=== PATIENT | male | born 1935 | race Caucasian/White ===

== ENCOUNTER 2017-03-02 16:31 | Observation (INO) ==
[2017-03-02 17:20] LABS: Basophils % 0.4 %; Eosinophils # 0.1 K/mcL (0.0-0.6); Eosinophils % 1.3 %; Hematocrit 42.1 % (37.5-50.1); Hemoglobin 13.9 g/dL (12.9-16.9); Immature Granulocytes % 0.3 % (0-4); Lymphocytes # 1.3 K/mcL (0.6-4.6); Lymphocytes % 11.6 %; Mean Corpuscular Hemoglobin 28.7 pg (28.0-33.3); Mean Corpuscular Volume 86.8 fL (83.0-100.0); Mean Platelet Volume 9.6 fL (9.4-12.4); Monocytes # 0.9 K/mcL (0.0-1.3); Monocytes % 8.1 %; Neutrophils # 8.6 K/mcL (1.6-8.9); Platelet Count 214 K/mcL (140-400); Red Blood Count 4.85 M/mcL (4.19-5.50); Red Cell Distribution Width 13.3 % (11.5-14.5); Segmented Neutrophils % 78.3 %
[2017-03-02 17:33] LABS: BUN/Creatinine Ratio 17 (6-26); Blood Urea Nitrogen 16 mg/dL (8-26); Calcium 9.8 mg/dL (8.6-10.8); Carbon Dioxide 28 mEq/L (19-29); Chloride 103 mEq/L (98-109); Glucose 108 mg/dL (70-99); Osmolality,Calculated 288 (280-300); Potassium 4.6 mEq/L (3.5-4.5); Sodium 138 mEq/L (136-145); eGFR For African Americans > 60 (> 60); eGFR For Non-African Americans > 60 (> 60)
--- NOTE | 2017-03-02 18:19 | Emergency Department Note ---
Disposition Clinical Impression: Chest pain Qualifiers: Chest pain type: unspecified Qualified Code(s): R07.9 - Chest pain, unspecified Abdominal pain Qualifiers: Abdominal location: unspecified location Qualified Code(s): R10.9 - Unspecified abdominal pain Disposition: Admitted As Inpatient Condition: Good Time of Disposition: 19:21 Abdominal Pain HPI - General Chief Complaint: ED Abdominal Pain Stated Complaint: CP/ABD Pain, Time Seen by Provider: 03/02/17 18:18 Source: patient Mode of arrival: ambulatory Limitations: no limitations Nursing Notes Reviewed: Yes Vital Signs Reviewed: Yes - History of Present Illness HPI Narrative: 81-year-old male who comes in states about 1:00 last night he woke up with epigastric pain and chest discomfort. Patient states he's had picked otitis in the past doesn't know if this is related to his also had some chest pain overnight. As postcholecystectomy does not drink alcohol. Pt Subjective Complaint: abdominal pain Onset (ago): hour(s) Consistency: constant Location: epigastric Pain Severity: moderate Quality: aching Radiation: chest Migration to: no migration Improves with: nothing Worsens with: nothing Associated symptoms: Reports: denies other symptoms - Related Data Home Medications Medication Instructions Recorded Confirmed Aspirin 81 mg PO DAILY 05/29/16 03/02/17 Finasteride [Proscar] 5 mg PO DAILY 05/29/16 03/02/17 Garlic 1,000 mg PO DAILY 05/29/16 03/02/17 Multivitamin [Multi-Day Vitamins] 1 each PO DAILY 05/29/16 03/02/17 [place]-3/Dha/Epa/Fish Oil [Fish Oil 2 each PO DAILY 05/29/16 03/02/17 1,000 mg Softgel] Polyethylene Glycol 3350 [MiraLAX] 17 gm PO DAILY 03/02/17 03/02/17 Previous Rx's Medication Instructions Recorded Omeprazole [PriLOSEC] 40 mg PO DAILY #30 cap 03/04/17 Sucralfate [Carafate] 1 gm PO QIDAC #120 tablet 03/04/17 Allergies Allergy/AdvReac Type Severity Reaction Status Date / Time azithromycin Allergy Swelling Verified 05/29/16 10:49 [From Zithromax Z-Prince] of the Eye All systems ED: reviewed and negative except as stated. Constitutional: Denies: fever, chills, weakness, weight change Eyes: Denies: eye pain, eye discharge, vision change ENT ED: Denies: ear pain, throat pain, dental pain, hearing loss, epistaxis, congestion, dysphagia Cardiovascular: Reports: chest pain. Denies: palpitations, dyspnea on exertion , edema, syncope Respiratory: Denies: cough, dyspnea, wheezes, hemoptysis, stridor Gastrointestinal: Reports: abdominal pain. Denies: nausea, vomiting, diarrhea, constipation, hematemesis, melena, hematochezia Genitourinary: Denies: urgency, dysuria, frequency, hematuria Musculoskeletal: Denies: back pain, neck pain, arthralgia, myalgia Integumentary: Denies: rash, abrasion, lesions Neurological: Denies: headache, weakness, numbness, paresthesias, confusion, abnormal gait, vertigo Psychiatric: Denies: anxiety, depression, suicidal thoughts, homicidal thoughts , auditory hallucinations, visual hallucinations Endocrine: Denies: fatigue Hematological/Lymphatic: Denies: easy bleeding, easy bruising Allergic/Immunologic: Denies: facial swelling, urticaria Abdominal Pain PMH - Past Medical History Medical history: Reports: GERD, RA, other Psychiatric history: Reports: no psych history - Social History Smoking status: Never smoker Alcohol use: Reports: none Drug use: Reports: none Physical Exam - General Limitations: no limitations - Head Head exam: atraumatic, normocephalic, normal inspection - Eye Eye exam: Present: normal appearance - ENT ENT exam: normal exam, normal oropharynx, mucous membranes moist - Neck Neck exam: Present: normal inspection, full ROM, trachea midline - Chest Chest inspection: Present: normal inspection, symmetric chest wall rise - Respiratory Respiratory exam: Present: normal lung sounds bilaterally - Cardiovascular Cardiovascular exam: Present: regular rate, normal rhythm, normal heart sounds - Abdominal Exam Abdominal exam: Present: soft, tenderness. Absent: guarding, rebound Abdominal tenderness: Present: epigastrium - Expanded Lower Extremity Exam Neurovascular/Tendon exam: Absent: motor deficit, sensory deficit, tendon deficit Gait: observed and normal - Back Exam Back exam: Present: normal inspection, full ROM. Absent: tenderness - Neurological Exam Neurological exam: Present: alert, oriented X3 - Psychiatric Psychiatric exam: Present: normal affect, normal mood - Skin Skin exam: Present: warm, dry, intact, normal color Course - Reevaluation(s) Reevaluation #1: 81-year-old gentleman comes in complaining of abdominal pain chest pain. Says the pain across his chest. Workup in the emergency department shows negative troponin. His amylase and lipase were normal. She will be admitted to evaluate the chest pain further. Time: 19:20 - Consultations Consultation #1: Discussed with Baltazar Stewart, admit Time: 19:20 Vital Signs Temperature 99.9 F H 03/02/17 16:53 Pulse Rate 83 03/02/17 16:53 Respiratory Rate 18 03/02/17 16:53 Blood Pressure 153/73 03/02/17 16:53 O2 Sat by Pulse Oximetry 97 03/02/17 16:53 Temperature 97.8 F 03/04/17 11:01 Pulse Rate 80 03/04/17 11:01 Respiratory Rate 16 03/04/17 11:01 Blood Pressure 172/65 03/04/17 11:01 O2 Sat by Pulse Oximetry 97 03/04/17 11:01 Oxygen Delivery Oxygen Delivery Room Air Abdominal Pain - Lab Data Result diagrams: 03/04/17 05:33 03/04/17 05:33 Lab Results 03/02/17 03/02/17 03/02/17 Range/Units 17:11 17:11 17:11 WBC 11.0 (4.3-11.1) K/mcL RBC 4.85 (4.19-5.50) M/mcL Hgb 13.9 (12.9-16.9) g/dL Hct 42.1 (37.5-50.1) % MCV 86.8 (83.0-100.0) fL MCH 28.7 (28.0-33.3) pg MCHC 33.0 (31.6-35.5) g/dL RDW 13.3 (11.5-14.5) % Plt Count 214 (140-400) K/mcL MPV 9.6 (9.4-12.4) fL Immature Gran % 0.3 (0-4) % Seg Neutrophils % 78.3 % Lymphocytes % 11.6 % Monocytes % 8.1 % Eosinophils % 1.3 % Basophils % 0.4 % Neutrophils # 8.6 (1.6-8.9) K/mcL Lymphocytes # 1.3 (0.6-4.6) K/mcL Monocytes # 0.9 (0.0-1.3) K/mcL Eosinophils # 0.1 (0.0-0.6) K/mcL Basophils # 0.0 (0.0-0.2) K/mcL Sodium 138 (136-145) mEq/L Potassium 4.6 H (3.5-4.5) mEq/L Chloride 103 (98-109) mEq/L Carbon Dioxide 28 (19-29) mEq/L BUN 16 (8-26) mg/dL Creatinine 0.93 (0.72-1.25) mg/dL Est GFR ( Amer) > 60 (> 60) Est GFR (Non-Af Amer) > 60 (> 60) BUN/Creatinine Ratio 17 (6-26) Glucose 108 H (70-99) mg/dL Calculated Osmolality 288 (280-300) Calcium 9.8 (8.6-10.8) mg/dL Total Bilirubin 0.9 (0.2-1.2) mg/dL Direct Bilirubin 0.4 (0.0-0.5) mg/dL Indirect Bilirubin 0.5 (0.0-1.2) mg/dL AST 202 H (5-34) Units/L ALT 223 H (0-55) Units/L Alkaline Phosphatase 121 (38-126) Units/L Troponin I 0.01 (0-0.03) ng/mL Serum Total Protein 7.5 (6.0-8.3) g/dL Albumin 3.7 (3.5-5.0) g/dL Globulin 3.8 H (2.4-3.5) g/dL Albumin/Globulin Ratio 1.0 L (1.1-2.2) Amylase 43 (25-125) Units/L Lipase 30 (8-78) Units/L Urine Color (Yellow) Urine Clarity (Clear) Urine pH (5.0-8.0) pH Units Ur Specific [place] (1.010-1.025) Urine Protein (Neg-Trace) mg/dL Urine Glucose (UA) (Normal) mg/dL Urine Ketones (Negative) mg/dL Urine Blood (Negative) Urine Nitrite (Negative) Urine Bilirubin (Negative) Urine Urobilinogen (Normal) mg/dL Ur Leukocyte Esterase (Negative) Urine Microscopic RBC (0-3) per hpf Urine Microscopic WBC (0-3) per hpf Ur Squamous Epith Cells (None-Few) per lpf Amorphous Sediment (Few) Urine Bacteria (None-Few) per hpf Hyaline Casts (None-Few) per lpf Urine Mucus (Few) Ur Culture Indicated? (NO) 03/02/17 Range/Units 18:30 WBC (4.3-11.1) K/mcL RBC (4.19-5.50) M/mcL Hgb (12.9-16.9) g/dL Hct (37.5-50.1) % MCV (83.0-100.0) fL MCH (28.0-33.3) pg MCHC (31.6-35.5) g/dL RDW (11.5-14.5) % Plt Count (140-400) K/mcL MPV (9.4-12.4) fL Immature Gran % (0-4) % Seg Neutrophils % % Lymphocytes % % Monocytes % % Eosinophils % % Basophils % % Neutrophils # (1.6-8.9) K/mcL Lymphocytes # (0.6-4.6) K/mcL Monocytes # (0.0-1.3) K/mcL Eosinophils # (0.0-0.6) K/mcL Basophils # (0.0-0.2) K/mcL Sodium (136-145) mEq/L Potassium (3.5-4.5) mEq/L Chloride (98-109) mEq/L Carbon Dioxide (19-29) mEq/L BUN (8-26) mg/dL Creatinine (0.72-1.25) mg/dL Est GFR ( Amer) (> 60) Est GFR (Non-Af Amer) (> 60) BUN/Creatinine Ratio (6-26) Glucose (70-99) mg/dL Calculated Osmolality (280-300) Calcium (8.6-10.8) mg/dL Total Bilirubin (0.2-1.2) mg/dL Direct Bilirubin (0.0-0.5) mg/dL Indirect Bilirubin (0.0-1.2) mg/dL AST (5-34) Units/L ALT (0-55) Units/L Alkaline Phosphatase (38-126) Units/L Troponin I (0-0.03) ng/mL Serum Total Protein (6.0-8.3) g/dL Albumin (3.5-5.0) g/dL Globulin (2.4-3.5) g/dL Albumin/Globulin Ratio (1.1-2.2) Amylase (25-125) Units/L Lipase (8-78) Units/L Urine Color Yellow (Yellow) Urine Clarity Cloudy A (Clear) Urine pH 8.0 (5.0-8.0) pH Units Ur Specific [place] 1.023 (1.010-1.025) Urine Protein 30 H (Neg-Trace) mg/dL Urine Glucose (UA) Normal (Normal) mg/dL Urine Ketones Negative (Negative) mg/dL Urine Blood Small H (Negative) Urine Nitrite Negative (Negative) Urine Bilirubin Negative (Negative) Urine Urobilinogen Normal (Normal) mg/dL Ur Leukocyte Esterase Small H (Negative) Urine Microscopic RBC 3-5 H (0-3) per hpf Urine Microscopic WBC 30-50 H (0-3) per hpf Ur Squamous Epith Cells Many H (None-Few) per lpf Amorphous Sediment Few (Few) Urine Bacteria None Seen (None-Few) per hpf Hyaline Casts None Seen (None-Few) per lpf Urine Mucus Moderate H (Few) Ur Culture Indicated? YES A (NO) - EKG Data EKG attestation: Yes I reviewed and interpreted this EKG. EKG shows normal: sinus rhythm Rate: normal Rhythm: NSR Interpretation: no acute changes
[2017-03-02 18:40] LABS: Alanine Aminotransferase 223 Units/L (0-55); Alkaline Phosphatase 121 Units/L (38-126); Amylase 43 Units/L (25-125); Aspartate Amino Transferase 202 Units/L (5-34); Bilirubin,Direct 0.4 mg/dL (0.0-0.5); Bilirubin,Indirect 0.5 mg/dL (0.0-1.2); Bilirubin,Total 0.9 mg/dL (0.2-1.2); Lipase 30 Units/L (8-78); Total Protein 7.5 g/dL (6.0-8.3)
[2017-03-02 18:48] LABS: Albumin 3.7 g/dL (3.5-5.0); Globulin 3.8 g/dL (2.4-3.5)
[2017-03-02 19:04] LABS: Bilirubin,Urine Negative (Negative); Blood,Urine Small (Negative); Clarity,Urine Cloudy (Clear); Color,Urine Yellow (Yellow); Glucose,Urine (UA) Normal (Normal); Ketones,Urine Negative (Negative); Leukocyte Esterase,Urine Small (Negative); Nitrite,Urine Negative (Negative); Protein,Urine 30 mg/dL (Neg-Trace); Specific Gravity,Urine 1.023 (1.010-1.025); Urobilinogen,Urine Normal (Normal)
[2017-03-02 19:06] LABS: Bacteria,Urine None Seen per hpf (None-Few); Squamous Epithelial Cell,Urine Many per lpf (None-Few); WBC,Urine 30-50 per hpf (0-3)
[2017-03-02 19:37] LABS: Amorphous Sediment,Urine Few (Few); Hyaline Casts,Urine None Seen per lpf (None-Few)
[2017-03-02 19:38] LABS: Mucus,Urine Moderate (Few)
[2017-03-02] MEDS ORDERED: Pantoprazole 40 MG VIAL IVP ONE (19:44)
--- NOTE | 2017-03-02 20:01 | Internal Med History&Physical ---
<oMe Trevizo - Last Filed: 03/02/17 21:30> Date of Encounter: 03/02/17 Time of Encounter: 19:59 Assessment and Plan (1) Chest pain Current visit: Yes Status: Acute Chest pain, r/o ACS ANNETTE score 3: Age 81, Patient takes Aspirin daily, and chest pain > 2 episodes in 24hrs He reports his mother from an [place] at age 66 Last stress test and EGD were normal 5 years ago. Initial troponin negative, monitor serial troponins. EKG negative. CT abd/plv shows no pericardial effusion is seen. Continue ASA daily, NTG prn, and Zofran prn. Clear liquid diet Will order Echo if no relief in chest pain with GI Cocktail and make NPO after MN for stress test Qualifiers: Chest pain type: unspecified Qualified Code(s): R07.9 - Chest pain, unspecified (2) UTI (urinary tract infection) Current visit: Yes Status: Acute Patient febrile 99.9 F UA shows cloudy appearance, small leukocyte estrase, WBC 30-50, and moderate mucous. Urine culture pending Continue Rocephin 1g daily Qualifiers: Urinary tract infection type: acute cystitis Qualified Code(s): N30.00 - Acute cystitis without hematuria (3) GERD (gastroesophageal reflux disease) Current visit: Yes Status: Acute GI cocktail ordered Continue Protonix BID Last EGD 5 years ago. Qualifiers: Esophagitis presence: esophagitis presence not specified Qualified Code(s) : K21.9 - Gastro-esophageal reflux disease without esophagitis (4) Transaminitis Current visit: Yes Status: Acute Elevated AST/ALT, Hepatic panel pending CT abd/plv reveals no acute intra-abdominal or pelvic process is seen, no ileus or obstruction, prior cholecystectomy. Continue to monitor (5) Arthritis Current visit: Yes Status: Acute Continue to monitor (6) BPH (benign prostatic hyperplasia) Current visit: Yes Status: Acute Continue home med: Proscar Qualifiers: Lower urinary tract symptom presence: symptoms present Qualified Code(s): N40.1 - Benign prostatic hyperplasia with lower urinary tract symptoms; R35.0 - Frequency of micturition (7) DVT prophylaxis Current visit: Yes Status: Acute Heparin SubQ TID Internal Medicine - H&P: HPI Chief complaint: Abd pain Admitted From: Home Plans for Post Hospital Care: Home History of present illness: Mr. Henry is a 81 year old male with a PMH of GERD, RA, BPH, and recent UTI that presented to the ED c/o constant lower chest/ epigastric pain that woke him up out of sleep at 1pm last night and has wax and waned in severity. Pain severity was 8/10 at its worst, radiates to his bilateral shoulder blades, and is described as a tightness. Patient reports eating makes epigastric pain worse and sitting up/ leading forward makes the pain better. Associated symptoms include fever, anorexia, nausea, and back pain. Patient reports he is very active and his last stress test and EGD were normal 5 years ago. Patient takes Aspirin daily and denies tobacco use. He reports his mother from an [place] at age 66 and his father had colon cancer. In the ED, EKG was unremarkable, initial troponin level was negative, CXR negative, and CT abd/plv negative. Temperature was 99.9 F and patient had positive UTI. Family is at bedside. Past Med Surg Social Fam HX - Past Medical History Medical history: GERD, RA, other Psychiatric history: no psych history - Past Surgical History Surgical History: cholecystectomy, herniorrhaphy (inguinal x3), other (back) - Social History Smoking Status: Never smoker Smokeless Tobacco Status: No Alcohol use: none Drug use: none Occupational status: retired Current living situation: Home, With Family Activity Level: Independent ambulation - Family History Mother Hx Family Cardiac Disorders: Yes (AK) Hx Family Endocrine Disorder: Yes (DM) Father Hx Family Cancer: Yes (Colon) Brother Hx Family Cancer: Yes (Colon) Internal Medicine - H&P: Meds Aspirin 81 mg PO DAILY 05/29/16 [History] Finasteride [Proscar] 5 mg PO DAILY 05/29/16 [History] Garlic 1,000 mg PO DAILY 05/29/16 [History] Multivitamin [Multi-Day Vitamins] 1 each PO DAILY 05/29/16 [History] [place]-3/Dha/Epa/Fish Oil [Fish Oil 1,000 mg Softgel] 2 each PO DAILY 05/29/16 [ History] Polyethylene Glycol 3350 [MiraLAX] 17 gm PO DAILY 03/02/17 [History] 3 Allergy/AdvReac Type Severity Reaction Status Date / Time azithromycin Allergy Swelling Verified 05/29/16 10:49 [From Zithromax Z-Prince] of the Eye All Systems PM: A 10-system review of systems was performed and is negative for pertinent findings except as documented above in the HPI. - Constitutional Constitutional: anorexia, fever(s), no chills, no weight gain, no weight loss - EENT Eyes: no change in vision Nose, mouth and throat: no nasal congestion, no sinus pressure - Cardiovascular Cardiovascular ROS IM: chest pain, no palpitations - Respiratory Respiratory: no cough, no dyspnea, no chest congestion, no excessive phlegm production, no change in phlegm color - Gastrointestinal Gastrointestinal: abdominal pain, heartburn, nausea, no bloating, no change in stool character, no constipation, no cramping, no diarrhea, no vomiting - Genitourinary Genitourinary ROS male: urinary frequency, urinary urgency, no difficulty urinating, no dysuria - Musculoskeletal Musculoskeletal ROS IM: arthralgias, back pain, no muscle weakness, no numbness , no tingling - Integumentary Integumentary IM: no erythema, no new lesions, no rash - Neurological Neurological ROS: no confusion, no numbness, no tingling, no weakness - Psychiatric Psychiatric: no anxiety, no depression - Endocrine Endocrine IM: no polydipsia, no polyphagia, no polyuria - Constitutional Vitals: Temp Pulse Resp BP Pulse Ox 99.9 F H 83 18 153/73 97 03/02/17 16:53 03/02/17 16:53 03/02/17 16:53 03/02/17 16:53 03/02/17 16:53 General appearance: Present: cooperative, A&O X 3, pleasant, no acute distress, answers questions appropriately. Absent: obese - Head Head exam: Present: atraumatic, normal inspection, normocephalic - Eye Eye exam: Present: EOMI, PERRL - ENT ENT exam: Present: mucous membranes moist, normal oropharynx - Neck Neck exam general surgery: Present: full ROM, normal inspection, supple - Respiratory Respiratory exam: Present: CTAB. Absent: rhonchi, wheezes - Cardiovascular Cardiovascular exam: Present: RRR, +S1, +S2 - GI/Abdominal GI/Abdominal exam: Present: soft, tenderness (epigastric). Absent: distended, guarding, rebound - Extremities Exam Extremities exam: Present: full ROM, normal capillary refill, warm, radial pulses palpable and symmetrical. Absent: pedal edema, tenderness - Back Exam Back exam: Present: normal inspection, paraspinal tenderness (T-spine). Absent : tenderness, vertebral tenderness - Neurological Exam Neurological exam: Present: alert, oriented X3, strengths equal and symetr throughout. Absent: altered, speech deficit - Psychiatric Psychiatric exam: Present: normal affect, normal mood - Skin Skin exam: Present: dry, normal color, warm Internal Med - H&P Results - Labs CBC & Chem 7: 03/02/17 17:11 03/02/17 17:11 Labs: Short CBC 03/02/17 Range/Units 17:11 WBC 11.0 (4.3-11.1) K/mcL Hgb 13.9 (12.9-16.9) g/dL Hct 42.1 (37.5-50.1) % Plt Count 214 (140-400) K/mcL Neutrophils # 8.6 (1.6-8.9) K/mcL BMP 03/02/17 17:11 Sodium 138 Potassium 4.6 H Chloride 103 Carbon Dioxide 28 BUN 16 Creatinine 0.93 Glucose 108 H Calcium 9.8 Cardiac Enzymes 03/02/17 Range/Units 17:11 Troponin I 0.01 (0-0.03) ng/mL Liver Function 03/02/17 Range/Units 17:11 Total Bilirubin 0.9 (0.2-1.2) mg/dL Direct Bilirubin 0.4 (0.0-0.5) mg/dL AST 202 H (5-34) Units/L ALT 223 H (0-55) Units/L Alkaline Phosphatase 121 (38-126) Units/L Albumin 3.7 (3.5-5.0) g/dL Urine 03/02/17 Range/Units 18:30 Urine Color Yellow (Yellow) Urine Clarity Cloudy A (Clear) Urine pH 8.0 (5.0-8.0) pH Units Ur Specific [place] 1.023 (1.010-1.025) Urine Protein 30 H (Neg-Trace) mg/dL Urine Glucose (UA) Normal (Normal) mg/dL - EKG Data -: EKG Interpreted by Myself EKG shows normal: sinus rhythm, axis, intervals, QRS complexes Rate: normal - Impressions ITS Impressions Chest X-Ray 03/02/17 16:56 IMPRESSION: No acute process. D/ / Olaf Be MD / Olaf Be MD Interpreting Provider: Olaf Be MD Abdomen/Pelvis CT 03/02/17 18:54 IMPRESSION: No acute intra-abdominal or pelvic process is seen. No ileus or obstruction. Cholecystectomy. D/ / Moe Lauren MD / Moe Lauren MD Interpreting Provider: Moe Lauren MD <Serina Ospina - Last Filed: 03/03/17 00:13> Date of Encounter: 03/03/17 Time of Encounter: 00:04 Internal Medicine - H&P: HPI History of present illness: Mr. Henry is a 81 year old male All Systems PM: A 10-system review of systems was performed and is negative for pertinent findings except as documented above in the HPI. - Constitutional Vitals: Temp Pulse Resp BP Pulse Ox 99.2 F 85 16 144/73 94 03/02/17 22:53 03/02/17 22:53 03/02/17 22:53 03/02/17 22:53 03/02/17 22:53 Internal Med - H&P Results - Labs CBC & Chem 7: 03/02/17 17:11 03/02/17 17:11 Labs: Cardiac Enzymes 03/02/17 Range/Units 21:01 Troponin I 0.02 (0-0.03) ng/mL - Attending Attestation Patient is an 81y/o male with PMH of GERD, RA, BPH who presented to the ER for worsening epigastric pain since yesterday. Patient describes the pain as burning /sharp in nature radiating to b/l rib cage, denies any associated symptoms. No alleviated and exacerbating factors reported. Patient received one dose of the GI cocktail after being on the unit, he states that resolved his pain but the pain reoccurred a couple of hours later. Patient denies any chest discomfort, no pressure like pain, or history of prior AK, no SOB. I independently examined the patient and during my evaluation, he denied any pain. He states he received the GI cocktail which resolved his pain and when the pain reoccured, he received one dose of morphine which resolved the pain. At this time, he denies any pain. He is resting comfortably in bed. Pt reports of an EGD a few years ago which was negative. CT abd/pelvis noted. Given currently clinical presentation, patient's pain is unlikely secondary to ACS. Will monitor serial TNI and obtain 2D echo. No EKG changes noted. No pericardial effusion reported on imaging. Pt currently pain free. If above tests are positive for any acute abnormality, consider cardiology evaluation. Will start Protonix IV BID, Carafate QID, consider GI evaluation in am. Pt also noted to have UTI. Will continue IV abx and f/u urine cultures. Noted to have elevated transaminases, will obtain viral hepatitis panel. Case was discussed with the resident physician Dr. Moe Trevzio. I agree with his documented findings, assessment, and plan except as listed above
[2017-03-02] MEDS ORDERED: Ondansetron 4 MG/2 ML VIAL IVP PRN (20:41)
[2017-03-02] MEDS ORDERED: Nitroglycerin 0.4 MG TAB.SUBL SL PRN (20:41)
[2017-03-02] MEDS ORDERED: Aspirin 325 MG TABLET PO ONE (20:41)
[2017-03-02] MEDS ORDERED: GI Cocktail 40 ML EACH PO ONE (20:45)
[2017-03-02] MEDS: Acetaminophen 325 MG TABLET PO PRN (22:11)
[2017-03-02] MEDS: *HR* Heparin 5,000 UNIT/ML VIAL SQ SCH (22:11)
[2017-03-02] MEDS: *HR* Morphine 2 MG/ML SYRINGE IVP PRN (23:33)
[2017-03-03] MEDS: Acetaminophen 325 MG TABLET PO PRN (03:10)
[2017-03-03] MEDS: *HR* Morphine 2 MG/ML SYRINGE IVP PRN (03:39)
[2017-03-03 05:34] LABS: INR 1.2; Prothrombin Time 12.9 Seconds (9.4-12.1)
[2017-03-03 06:07] LABS: Basophils % 0.3 %; Eosinophils # 0.1 K/mcL (0.0-0.6); Eosinophils % 1.3 %; Hematocrit 37.8 % (37.5-50.1); Hemoglobin 12.4 g/dL (12.9-16.9); Immature Granulocytes % 0.6 % (0-4); Immature Platelets 3.2 % (1.1-6.1); Lymphocytes # 0.7 K/mcL (0.6-4.6); Lymphocytes % 10.4 %; Mean Corpuscular HGB Conc 32.8 g/dL (31.6-35.5); Mean Corpuscular Hemoglobin 28.3 pg (28.0-33.3); Mean Corpuscular Volume 86.3 fL (83.0-100.0); Mean Platelet Volume 10.1 fL (9.4-12.4); Monocytes # 0.7 K/mcL (0.0-1.3); Monocytes % 10.4 %; Neutrophils # 5.2 K/mcL (1.6-8.9); Platelet Count 181 K/mcL (140-400); Red Blood Count 4.38 M/mcL (4.19-5.50); Red Cell Distribution Width 13.2 % (11.5-14.5)
[2017-03-03] MEDS: *HR* Heparin 5,000 UNIT/ML VIAL SQ SCH ×3 (06:13→20:50)
[2017-03-03 06:58] LABS: Alanine Aminotransferase 809 Units/L (0-55); Albumin/Globulin Ratio 0.9 (1.1-2.2); Alkaline Phosphatase 175 Units/L (38-126); Aspartate Amino Transferase 1112 Units/L (5-34); BUN/Creatinine Ratio 17 (6-26); Blood Urea Nitrogen 14 mg/dL (8-26); Calcium 8.6 mg/dL (8.6-10.8); Carbon Dioxide 23 mEq/L (19-29); Chloride 103 mEq/L (98-109); Globulin 3.4 g/dL (2.4-3.5); Glucose 117 mg/dL (70-99); Magnesium 1.8 mg/dL (1.6-2.6); Osmolality,Calculated 282 (280-300); Potassium 3.7 mEq/L (3.5-4.5); Total Protein 6.4 g/dL (6.0-8.3); eGFR For African Americans > 60 (> 60); eGFR For Non-African Americans > 60 (> 60)
[2017-03-03 06:59] LABS: Bilirubin,Total 3.3 mg/dL (0.2-1.2); Sodium 135 mEq/L (136-145)
[2017-03-03 07:16] LABS: Chol/HDL Ratio 2.8 (0-4.9)
[2017-03-03] MEDS ORDERED: Pantoprazole 40 MG VIAL IVP SCH (09:00)
[2017-03-03] MEDS: Pantoprazole 40 MG VIAL IVP SCH ×2 (10:27→20:49)
[2017-03-03] MEDS: Finasteride 5 MG TABLET PO SCH (10:27)
[2017-03-03] MEDS: Aspirin 81 MG TAB.CHEW PO SCH (10:27)
[2017-03-03] MEDS: Sucralfate 1 GM TABLET PO SCH ×4 (10:29→20:50)
[2017-03-03 14:44] LABS: Hepatitis B Core IgM Nonreactive (Nonreactive); Hepatitis C Virus Antibody Nonreactive (Nonreactive)
[2017-03-03 15:56] LABS: Albumin 3.2 g/dL (3.5-5.0); Albumin/Globulin Ratio 0.9 (1.1-2.2); Bilirubin,Direct 1.5 mg/dL (0.0-0.5); Bilirubin,Indirect 0.9 mg/dL (0.0-1.2); Bilirubin,Total 2.4 mg/dL (0.2-1.2); Globulin 3.7 g/dL (2.4-3.5); Total Protein 6.9 g/dL (6.0-8.3)
[2017-03-03 16:22] LABS: Hepatitis A Antibody IgM Nonreactive (Nonreactive); Hepatitis B Surface Antigen Nonreactive (Nonreactive)
--- NOTE | 2017-03-03 17:03 | Internal Med Progress Note ---
Date of Encounter: 03/03/17 Time of Encounter: 17:07 - Assessment and plan (1) Chest pain Current Visit: Yes Status: Acute Assessment and plan: Chest pain, r/o ACS ANNETTE score 3: Age 81, Patient takes Aspirin daily, and chest pain > 2 episodes in 24hr. Serial troponins, EKG without acute ST changes. 03/03/2017 TTE with EF 60%. CT abd/plv shows no pericardial effusion is seen. Continue ASA daily, NTG prn, and Zofran prn. Stress test in a.m., consult cardiology if needed. Qualifiers: Chest pain type: unspecified Qualified Code(s): R07.9 - Chest pain, unspecified (2) Transaminitis Current Visit: Yes Status: Acute Assessment and plan: AST/ALT mildly elevated on arrival. Repeat LFTs on 920 was significant elevation, also with elevation in bilirubin. Acute hepatitis panel negative CT abd/plv reveals no acute intra-abdominal or pelvic process is seen, no ileus or obstruction. Hx prior cholecystectomy. RUQ US concerning for CBD dilation. Discussed case with GI and concerned for choledocholithiasis. MRCP pending. (3) UTI (urinary tract infection) Current Visit: Yes Status: Acute Assessment and plan: UA concerning for UTI with cloudy appearance, small leukocyte estrase, WBC 30-50 , and moderate mucous. Continue Rocephin. Urine culture pending, narrow ATB according to culture. Qualifiers: Urinary tract infection type: acute cystitis Qualified Code(s): N30.00 - Acute cystitis without hematuria (4) DVT prophylaxis Current Visit: Yes Status: Acute - Subjective Interval history: Seen and examined at bedside, patient is new to me. Information obtained from chart review and patient report. Patient reports long-standing ABG pain for years. No known liver disease. Had gallbladder removed years ago. No loose stool, complains of constipation. No further chest pain since his mentation. Denies shortness of breath. Has some intermittent nausea, no vomiting. - Constitutional Vitals: Temp Pulse Resp BP Pulse Ox 97.9 F 74 16 151/65 96 03/03/17 15:26 03/03/17 15:26 03/03/17 15:26 03/03/17 15:26 03/03/17 15:26 General appearance: Present: cooperative, A&O X 3, pleasant, no acute distress, answers questions appropriately. Absent: obese - Head Head exam: Present: atraumatic, normocephalic - Eye Eye exam: Present: PERRL, conjuntiva pink, sclera anicteric Pupils: Present: PERRL - Neck Neck exam general surgery: Present: supple, trachea midline. Absent: lymphadenopathy - Respiratory Respiratory exam: Present: CTAB. Absent: accessory muscle use, rales, rhonchi, wheezes - Cardiovascular Cardiovascular exam: Present: RRR, +S1, +S2. Absent: diastolic murmur, gallop, rubs, systolic murmur - GI/Abdominal GI/Abdominal exam: Present: normal bowel sounds, soft, tenderness, no peritoneal signs. Absent: distended - Extremities Exam Extremities exam: Present: warm, radial pulses palpable and symmetrical. Absent : calf tenderness, cyanotic, pedal edema - Neurological Exam Neurological exam: Present: CN II-XII intact, oriented X3, no focal deficits. Absent: pronater drift, facial droop, speech deficit - Skin Skin exam: Present: dry, intact Internal Medicine: Result - Labs CBC & Chem 7: 03/03/17 04:48 03/03/17 04:48 Labs: Short CBC 03/03/17 Range/Units 04:48 WBC 6.7 (4.3-11.1) K/mcL Hgb 12.4 L D (12.9-16.9) g/dL Hct 37.8 (37.5-50.1) % Plt Count 181 (140-400) K/mcL Neutrophils # 5.2 (1.6-8.9) K/mcL BMP 03/03/17 04:48 Sodium 135 L Potassium 3.7 Chloride 103 Carbon Dioxide 23 BUN 14 Creatinine 0.81 Glucose 117 H Calcium 8.6 Cardiac Enzymes 03/02/17 03/03/17 03/03/17 Range/Units 21:01 04:48 10:41 Troponin I 0.02 0.01 0.00 (0-0.03) ng/mL Liver Function 03/03/17 03/03/17 Range/Units 04:48 15:01 Total Bilirubin 3.3 H D 2.4 H (0.2-1.2) mg/dL Direct Bilirubin 1.5 H D (0.0-0.5) mg/dL AST 1112 H 635 H (5-34) Units/L ALT 809 H 801 H (0-55) Units/L Alkaline Phosphatase 175 H 207 H (38-126) Units/L Albumin 3.0 L 3.2 L (3.5-5.0) g/dL - ABG Interpretation ABG results: PT/INR, D-dimer PT 12.9 Seconds (9.4-12.1) H 03/03/17 04:48 - Impressions Impressions Abdomen Ultrasound 03/03/17 11:00 IMPRESSION: Mild intrahepatic biliary dilatation. Common bile duct is prominence. Findings may be related to previous cholecystectomy. Findings are unchanged since the CT 04/15/2015 D/ / Chanel Hagen MD / Chanel Hagen MD Interpreting Provider: Chanel Hagen MD Consult Discharge Plan - Plan Referrals: Stephany Prince, EAR PULL MACHINE OPERATOR [Primary Care Provider] -
[2017-03-03] MEDS ORDERED: 0.9 % Sodium Chloride 1,000 ML IVC SCH (17:15)
[2017-03-04] MEDS: *HR* Heparin 5,000 UNIT/ML VIAL SQ SCH ×2 (05:51→14:58)
[2017-03-04 06:01] LABS: Hemoglobin 12.6 g/dL (12.9-16.9); Mean Corpuscular HGB Conc 33.2 g/dL (31.6-35.5); Mean Corpuscular Hemoglobin 28.6 pg (28.0-33.3); Mean Corpuscular Volume 86.2 fL (83.0-100.0); Mean Platelet Volume 10.3 fL (9.4-12.4); Platelet Count 183 K/mcL (140-400); Red Blood Count 4.41 M/mcL (4.19-5.50); Red Cell Distribution Width 13.2 % (11.5-14.5)
[2017-03-04 06:13] LABS: Alanine Aminotransferase 518 Units/L (0-55); Albumin 2.8 g/dL (3.5-5.0); Albumin/Globulin Ratio 0.8 (1.1-2.2); Alkaline Phosphatase 168 Units/L (38-126); Aspartate Amino Transferase 286 Units/L (5-34); BUN/Creatinine Ratio 14 (6-26); Bilirubin,Indirect 0.3 mg/dL (0.0-1.2); Bilirubin,Total 0.7 mg/dL (0.2-1.2); Blood Urea Nitrogen 11 mg/dL (8-26); Calcium 8.4 mg/dL (8.6-10.8); Carbon Dioxide 23 mEq/L (19-29); Chloride 107 mEq/L (98-109); Globulin 3.3 g/dL (2.4-3.5); Glucose 93 mg/dL (70-99); Osmolality,Calculated 283 (280-300); Potassium 4.5 mEq/L (3.5-4.5); Sodium 137 mEq/L (136-145); Total Protein 6.1 g/dL (6.0-8.3); eGFR For African Americans > 60 (> 60); eGFR For Non-African Americans > 60 (> 60)
[2017-03-04 06:14] LABS: Bilirubin,Direct 0.4 mg/dL (0.0-0.5)
[2017-03-04] MEDS ORDERED: Regadenoson 0.4 MG/5 ML SYRINGE IVP ONE (06:38)
--- NOTE | 2017-03-04 08:09 | Electrocardiograph Report ---
[place] [id number] Test Date: 2017-03-02 Pat Name: Lj Henry Department: 102 Room: 3B46 Gender: M [employer] Faculty Member: Larry : 1935 Requested By: Kristy Calvin Order Number: [id number] Reading MD: Sujit Manuel MD Measurements Intervals Hector Rate: 85 P: 58 WV: 132 QRS: 65 QRSD: 86 T: 50 QT: 341 QTc: 383 Interpretive Statements SINUS RHYTHM BRADFORD Electronically Signed On 03-04-2017 6:29:43 EDT by Sujit Manuel MD
--- NOTE | 2017-03-04 10:39 | Nuclear Medicine Stress Report ---
Regadenoson Nuclear Stress Name: Lj Henry Date of Study: 03/03/2017 Date: 1935 Ht: 68.0 in Medical Record#: [id number] Age: 81 Wt: 162.0 lb Gender: Male Order #: [id number] Location: [facility] Room: [facility] Supervising Provider: Juan Jose Hanson CNP Reading Physician: Zach Gupta DO, FACC, FASMA Ordering Physician: Serina Ospina MD Stress Technologist: Cy Loza DIRECTOR OF STUDENT LIFE, CCT Inductor Tester: Jermaine Collier Indications: Chest Pain Impression: Pharmacologic stress ECG is negative for ischemia at level of heart rate achieved. Gated EF = 64%. Perfusion imaging was negative for ischemia or infarct. History: History of Smoking Stress Test Summary: Stress Test Type: Pharmacologic Regadenoson 0.4mg/5ml given IV Baseline Information: Initial Heart Rate: 71 Blood Pressure: 126/84 Stress Information: Stress Time: 4 min 00 sec Test Terminated Due to (primary): Completed Protocol Maximum Blood Pressure: 150/72 Maximum Heart Rate: 94 Percent Maximum Heart Rate Achieved: 69 Double Product: 14,100 METS Reached: 1 Symptoms: Shortness of breath, Flushing, Stomach pain Nuclear Summary: SPECT myocardial perfusion imaging using Tc99m Sestamibi given intravenously was performed at rest and following cardiac stress testing. The resting images were obtained following initial dose of 11.9 mCi. Following stress an additional dose of 34.5 mCi was given at peak exercise or 30 seconds post regadenoson infusion. Medication Given: Time Medication Dose Units Route Findings: Stress Note * Resting ECG demonstrated normal sinus rhythm. * Rare PVCs noted prior to exam beginning. * Pharmacologic stress ECG is negative for ischemia at level of heart rate achieved. * Occasional PVCs noted during stress, recovery. * Patient had no chest pain during stress. * Normal hemodynamic responses to pharmacologic stress. Study Quality * Study quality is average. Gated EF % * Gated EF = 64%. Left Ventricle * The left ventricle is not dilated. LVEDV = 72 mL. Normals * Normal wall motion. * Normal segmental perfusion in rest. * Normal segmental perfusion in stress. TID * No evidence of transient ischemic dilatation. TID ratio = 72. Lung Uptake * There is no evidence of increase lung uptake. Updated by Zach Gupta DO, FACMarce, GEOFFREY, FASVLADIMIR on 03/04/2017 10:33:21 AM electronically signed on 03/04/2017 10:34:46 AM with status of Final
[2017-03-04 11:05] VITALS: BP 172/65
[2017-03-04] MEDS: Finasteride 5 MG TABLET PO SCH (11:12)
[2017-03-04] MEDS: Sucralfate 1 GM TABLET PO SCH ×2 (11:12)
[2017-03-04] MEDS: Aspirin 81 MG TAB.CHEW PO SCH (11:12)
[2017-03-04] MEDS: Pantoprazole 40 MG VIAL IVP SCH (11:13)
--- NOTE | 2017-03-04 13:02 | Discharge Summary ---
Date of Encounter: 03/04/17 Time of Encounter: 12:57 (48 minutes spent on discharge ) - Discharge Diagnosis (1) Transaminitis Priority: Primary Status: Acute Comments: presented with abdominal pain. LFTs peaked at AST 635, ALT 807, Alk phos 207. ABD CT showed no acute intra-abdominal or pelvic process, no ileus or obstruction, prior cholecystectomy. 03/03/2017 MRCP with [id number] intrahepatic biliary dilatation. ERCP was initially planned however LFTS trended down. Per GI, transient elevation could be secondary to passing stone remnant. No further inpatient work-up indicated. Plan for outpatient GI follow- up. Cont PPI, carafate until seen by GI (2) Chest pain Priority: Primary Status: Acute Comments: with > 2 episodes of chest pain in 24hr. Serial troponins negative, EKG without acute ST changes. 03/03/2017 TTE with EF 60%. Stress test negative for ischemia. Chest pain likely gastric etiology. Cont home ASA, can follow-up with PCP outpatient Qualifiers: Chest pain type: unspecified Qualified Code(s): R07.9 - Chest pain, unspecified (3) UTI (urinary tract infection) Priority: Primary Status: Acute Comments: ruled out. UA was concerning for UTI with cloudy appearance, small leukocyte estrase, WBC 30-50, and moderate mucous. Rocephin started on admisison. 2016 Urine culture negative. Rocephin stopped. Qualifiers: Urinary tract infection type: acute cystitis Qualified Code(s): N30.00 - Acute cystitis without hematuria (4) DVT prophylaxis Priority: Secondary Status: Acute Comments: heparin - Discharge Medications Prescriptions: Omeprazole [PriLOSEC] 40 mg PO DAILY #30 cap Sucralfate [Carafate] 1 gm PO QIDAC #120 tablet Home Medications: Aspirin 81 mg PO DAILY 05/29/16 [History] Finasteride [Proscar] 5 mg PO DAILY 05/29/16 [History] Garlic 1,000 mg PO DAILY 05/29/16 [History] Multivitamin [Multi-Day Vitamins] 1 each PO DAILY 05/29/16 [History] [place]-3/Dha/Epa/Fish Oil [Fish Oil 1,000 mg Softgel] 2 each PO DAILY 05/29/16 [ History] Polyethylene Glycol 3350 [MiraLAX] 17 gm PO DAILY 03/02/17 [History] Omeprazole [PriLOSEC] 40 mg PO DAILY #30 cap 03/04/17 [Rx] Sucralfate [Carafate] 1 gm PO QIDAC #120 tablet 03/04/17 [Rx] Allergies/Adverse Reactions: 3 Allergy/AdvReac Type Severity Reaction Status Date / Time azithromycin Allergy Swelling Verified 05/29/16 10:49 [From Zithromax Z-Prince] of the Eye Procedures/tests Complete & Pending: Procedures Performed prior 72 hours Category Date Time Status NM mónica perf SPECT multi [NM] Routine Exams 03/03/17 10:17 Taken US abdomen limited [US] Routine Exams 03/03/17 11:00 Completed MRCP [MR abdomen wo con] [MR] Routine MRI 03/03/17 14:50 Completed EV echocardiogram Routine Y 03/03/17 00:01 Completed SP pharm nuclear stress Routine Y 03/04/17 10:17 Completed Date of admission: 03/02/17 20:13 Primary care physician: Stephany Prince CNP Consults: 03/04/17 07:53 Consult to Gastroenterology [CONS] Routine Consulting Provider: Gastroenterology Lorin Reason for Consult: elevated LFTs Call Completed: Yes Discharging clinician: Janett Zabala Anticipated date of discharge: 03/04/17 - Patient Status Disposition: Home, Self-Care Condition: Good Functional capacity at discharge: independent ambulation Overall status at discharge: patient is back to baseline - Discharge Instructions Follow Up With: Stephany Prince CNP [Primary Care Provider] - 03/10/17 10:35 am - Diet and Activity Activity: increase activity as tolerated Diet: advance to your usual diet Interval History: Seen and examined at bedside. Says he feels better and wants to eat. Discussed stress test results with him and , both are aware of negative results. Discussed with Dr. An and ERCP cancelled as LFTs are trending down. Plan for outpatient follow-up. No CP, no SOB Hospital course: Mr. Henry is a 81 year old male - Time Spent with Patient Total time spent providing and/or coordinating discharge services: Greater than 30 minutes (48 minutes) - Constitutional Vitals: Temp Pulse Resp BP Pulse Ox 97.8 F 80 16 172/65 97 03/04/17 11:01 03/04/17 11:01 03/04/17 11:01 03/04/17 11:01 03/04/17 11:01 General appearance: Present: cooperative, A&O X 3, pleasant, no acute distress, answers questions appropriately. Absent: obese - Head Head exam: Present: atraumatic, normocephalic - Eye Eye exam: Present: PERRL, conjuntiva pink, sclera anicteric Pupils: Present: PERRL - Neck Neck exam general surgery: Present: supple, trachea midline. Absent: lymphadenopathy - Respiratory Respiratory exam: Present: CTAB. Absent: accessory muscle use, rales, rhonchi, wheezes - Cardiovascular Cardiovascular exam: Present: RRR, +S1, +S2. Absent: diastolic murmur, gallop, rubs, systolic murmur - GI/Abdominal GI/Abdominal exam: Present: normal bowel sounds, soft, no peritoneal signs. Absent: distended, tenderness - Extremities Exam Extremities exam: Present: warm, radial pulses palpable and symmetrical. Absent : calf tenderness, cyanotic, pedal edema - Neurological Exam Neurological exam: Present: CN II-XII intact, oriented X3, no focal deficits. Absent: pronater drift, facial droop, speech deficit - Skin Skin exam: Present: dry, intact
--- NOTE | 2017-03-04 15:23 | Gastroenterology Consult Note ---
<MaricelTamia - Last Filed: 03/04/17 15:19> Date of Encounter: 03/04/17 Time of Encounter: 15:19 - Assessment and plan (1) Transaminitis Status: Acute Assessment and plan: initial transaminitis trending down. abdomen MRI showed mild to moderate intrahepatic biliary dilation. common bile duct is prominent and there is abrupt caliper change distally. no discrete filling defect noted. Patient had ERCP done in the past by Dr. Vo that showed no abdominal pathology. The increased caliper of common bile duct could be physiologic. Plan: continue to monitor, as LFTs are improving. No indication for ERCP at the time should follow up outpatient with Dr. An to decide if ERCP is indicated at a later time. - Time Spent With Patient Total time spent is greater than 50% in coordination of care (as documented) at patient's floor/unit and/or counseling patient: GI History of Present Illness - Data of Consult Consult date: 03/03/17 Requesting Physician: Serina Ospina MD - Consult Narrative Reason for consult: elevated LFTs History of present illness: Mr. Henry is a 81 year old male with PMHx of GERD, RA, BPH, recurrent UTIs. patient arrived to [facility] with chief complaint of constant lower chest/epigastric pain that woke up up at night. pain was 8/10 and radiates to bilateral shoulders. pain is worse with eating. sitting up and leaning forward makes the pain better. GI was consulted for elevated LFTs. patient denies currently having pain, shortness of breath, nausea, vomiting, diarrhea, fever, chills, chest pain, hematuria, hematochezia, melena. Past Med Surg Social Fam HX - Past Medical History Medical history: GERD, RA, other Psychiatric history: no psych history - Past Surgical History Surgical History: cholecystectomy, herniorrhaphy, orthopedic, other, other - Social History Smoking Status: Never smoker Smokeless Tobacco Status: No Alcohol use: none Drug use: none - Family History Mother Hx Family Cardiac Disorders: Yes ([place]) Hx Family Endocrine Disorder: Yes (DM) Father Hx Family Cancer: Yes (Colon) Brother Hx Family Cancer: Yes (Colon) All systems PM: reviewed and no additional remarkable complaints except as stated - Constitutional Vitals: Temp Pulse Resp BP Pulse Ox 97.8 F 80 16 172/65 97 03/04/17 11:01 03/04/17 11:01 03/04/17 11:01 03/04/17 11:01 03/04/17 11:01 General appearance: Present: A&O X 3, pleasant, no acute distress, answers questions appropriately - Head Head exam: Present: atraumatic, normocephalic - Neck Neck exam general surgery: Present: supple, trachea midline - Respiratory Respiratory exam: Present: CTAB - GI/Abdominal GI/Abdominal exam: Present: distended, firm, normal bowel sounds. Absent: tenderness - Extremities Exam Extremities exam: Absent: cyanotic, pedal edema - Neurological Exam Neurological exam: Present: alert, oriented X3, no focal deficits - Psychiatric Psychiatric exam: Present: normal affect, normal mood - Skin Skin exam: Present: intact Results - Labs CBC & Chem 7: 03/04/17 05:33 03/04/17 05:33 Labs: Last Result Calcium 8.4 mg/dL (8.6-10.8) L 03/04/17 05:33 Troponin I 0.00 ng/mL (0-0.03) 03/03/17 10:41 Triglycerides 81 mg/dL (< 150) 03/03/17 04:48 Entire Visit Hgb 12.6 g/dL (12.9-16.9) L 03/04/17 05:33 Hct 38.0 % (37.5-50.1) 03/04/17 05:33 PT 12.9 Seconds (9.4-12.1) H 03/03/17 04:48 Total Bilirubin 0.7 mg/dL (0.2-1.2) 03/04/17 05:33 AST 286 Units/L (5-34) H 03/04/17 05:33 ALT 518 Units/L (0-55) H 03/04/17 05:33 Amylase 43 Units/L (25-125) 03/02/17 17:11 Lipase 30 Units/L (8-78) 03/02/17 17:11 - ABG ABG results: PT/INR, D-dimer PT 12.9 Seconds (9.4-12.1) H 03/03/17 04:48 - Impressions Impressions Echocardiogram 03/03/17 00:01 Impressions: LVEF 60-65%. Normal LV chamber size and function. Mild concentric left ventricular hypertrophy. Moderate left ventricular diastolic dysfunction. Normal right ventricular structure and function. Mild aortic regurgitation. Mild mitral regurgitation. No evidence of pulmonary hypertension. Left Ventricular Wall Motion: Rest Echo Findings All wall segments showed normal motion. Findings: Study Quality * Technically adequate exam. ECG Findings * Normal sinus rhythm. Left Ventricle * LVEF 60-65%. * Normal LV chamber size and function. * Mild concentric left ventricular hypertrophy. * Moderate left ventricular diastolic dysfunction. Right Ventricle * Normal right ventricular structure and function. Left Atrium * Mildly dilated left atrium. Right Atrium * Mildly dilated right atrium. Interatrial Septum * No evidence of PFO by color Doppler. Aortic Valve * Trileaflet aortic valve. * Mild aortic regurgitation. * No aortic stenosis. Mitral Valve * Mild mitral annular calcification * Mildly thickened mitral valve leaflets. * Mild mitral regurgitation. * No mitral stenosis. Tricuspid Valve * Normal tricuspid valve structure and function. * Trace tricuspid regurgitation. * No evidence of pulmonary hypertension. Pulmonic Valve * Normal pulmonic valve structure and function. * Trace pulmonic regurgitation. Aorta * Normally sized aortic root. Pericardium * The pericardium appears normal. IVC * Normal IVC dimensions and inspiratory collapse. Pulmonary Artery * Normal visualized portions of the main pulmonary artery. Abdomen MRI 03/03/17 14:50 IMPRESSION: [id number] intrahepatic biliary dilatation. Common bile duct is prominent and there is abrupt caliber change distally. No discrete filling defect noted. Recommend further evaluation with endoscopy to exclude underlying lesion. Pancreatic duct appears unremarkable. D/ / Chanel Hagen MD / Chanel Hagen MD Interpreting Provider: Chanel Hagen MD Consult Discharge Plan - Plan Instructions: Chest Pain (DC), Urinary Tract Infection in Men (DC) Referrals: Stephany Prince CNP [Primary Care Provider] - 03/10/17 10:35 am Miracle An MD [Partnered Physician] - (We have web requested you an appointment with Dr. An. His office should be calling you sometime next week with an appointment. Thank you! ) Prescriptions: Omeprazole [PriLOSEC] 40 mg PO DAILY #30 cap Sucralfate [Carafate] 1 gm PO [facility] #120 tablet <Miracle An - Last Filed: 03/05/17 08:03> Date of Encounter: 03/04/17 Time of Encounter: 15:30 - Time Spent With Patient Total time spent is greater than 50% in coordination of care (as documented) at patient's floor/unit and/or counseling patient: GI History of Present Illness - Data of Consult Requesting Physician: Serina Ospina MD - Consult Narrative History of present illness: Mr. Henry is a 81 year old male - Constitutional Vitals: Temp Pulse Resp BP Pulse Ox 97.8 F 80 16 172/65 97 03/04/17 11:01 03/04/17 11:01 03/04/17 11:01 03/04/17 11:01 03/04/17 11:01 Results - Labs CBC & Chem 7: 03/04/17 05:33 03/04/17 05:33 Labs: Last Result Calcium 8.4 mg/dL (8.6-10.8) L 03/04/17 05:33 Troponin I 0.00 ng/mL (0-0.03) 03/03/17 10:41 Triglycerides 81 mg/dL (< 150) 03/03/17 04:48 Entire Visit Hgb 12.6 g/dL (12.9-16.9) L 03/04/17 05:33 Hct 38.0 % (37.5-50.1) 03/04/17 05:33 PT 12.9 Seconds (9.4-12.1) H 03/03/17 04:48 Total Bilirubin 0.7 mg/dL (0.2-1.2) 03/04/17 05:33 AST 286 Units/L (5-34) H 03/04/17 05:33 ALT 518 Units/L (0-55) H 03/04/17 05:33 Amylase 43 Units/L (25-125) 03/02/17 17:11 Lipase 30 Units/L (8-78) 03/02/17 17:11 - ABG ABG results: PT/INR, D-dimer PT 12.9 Seconds (9.4-12.1) H 03/03/17 04:48 - Impressions Impressions Echocardiogram 03/03/17 00:01 Impressions: LVEF 60-65%. Normal LV chamber size and function. Mild concentric left ventricular hypertrophy. Moderate left ventricular diastolic dysfunction. Normal right ventricular structure and function. Mild aortic regurgitation. Mild mitral regurgitation. No evidence of pulmonary hypertension. Left Ventricular Wall Motion: Rest Echo Findings All wall segments showed normal motion. Findings: Study Quality * Technically adequate exam. ECG Findings * Normal sinus rhythm. Left Ventricle * LVEF 60-65%. * Normal LV chamber size and function. * Mild concentric left ventricular hypertrophy. * Moderate left ventricular diastolic dysfunction. Right Ventricle * Normal right ventricular structure and function. Left Atrium * Mildly dilated left atrium. Right Atrium * Mildly dilated right atrium. Interatrial Septum * No evidence of PFO by color Doppler. Aortic Valve * Trileaflet aortic valve. * Mild aortic regurgitation. * No aortic stenosis. Mitral Valve * Mild mitral annular calcification * Mildly thickened mitral valve leaflets. * Mild mitral regurgitation. * No mitral stenosis. Tricuspid Valve * Normal tricuspid valve structure and function. * Trace tricuspid regurgitation. * No evidence of pulmonary hypertension. Pulmonic Valve * Normal pulmonic valve structure and function. * Trace pulmonic regurgitation. Aorta * Normally sized aortic root. Pericardium * The pericardium appears normal. IVC * Normal IVC dimensions and inspiratory collapse. Pulmonary Artery * Normal visualized portions of the main pulmonary artery. - Attending Attestation I examined this patient and my medical decision-making was reviewed with the Resident Physician. I agree with the documented findings, disposition and treatment plan as described except to the extent set forth below. Patient seen by me on 03/04 and this is the full consult. Patient with the epigastric pain and abnormal LFTs concerning for a CBD stone but his ultrasound and MRCP did not show any CBD stone other than mildly dilated CBD. As his LFTs are improving at this point and he is pain free no need for ERCP , patient will follow up with me as an outpatient.
== END 2017-03-04 15:41 | disposition home or self-care (01) ==
LOC: 3BNU 16:31 → EMEROO 16:31 → 3BNU 21:08
PROVIDERS: ADMIT Internal Medicine; ATTEND Internal Medicine

== ENCOUNTER 2018-09-25 09:39 | Observation (INO) ==
[2018-09-25] MEDS ORDERED: Isovue-370 500 ML BOTTLE IVP ONE (09:56)
[2018-09-25 10:11] LABS: Hematocrit 39.6 % (37.5-50.1); Mean Corpuscular HGB Conc 32.8 g/dL (31.6-35.5); Mean Corpuscular Hemoglobin 28.4 pg (28.0-33.3); Mean Corpuscular Volume 86.7 fL (83.0-100.0); Mean Platelet Volume 9.1 fL (9.4-12.4); Platelet Count 208 K/mcL (140-400); Red Blood Count 4.57 M/mcL (4.19-5.50); Red Cell Distribution Width 13.5 % (11.5-14.5)
[2018-09-25] MEDS ORDERED: Aspirin 81 MG TAB.CHEW PO ONE (10:15)
[2018-09-25 10:21] LABS: Prothrombin Time 10.9 Seconds (9.4-12.1)
[2018-09-25] MEDS: Nitroglycerin 0.4 MG TAB.SUBL SL STA ×3 (10:28→10:42)
[2018-09-25 10:34] LABS: BUN/Creatinine Ratio 22 (6-26); Blood Urea Nitrogen 18 mg/dL (8-23); Calcium 9.8 mg/dL (8.6-10.3); Carbon Dioxide 30 mEq/L (23-29); Chloride 103 mEq/L (98-107); Glucose 100 mg/dL (70-105); Osmolality,Calculated 288 (280-300); Potassium 4.9 mEq/L (3.5-5.1); Sodium 138 mEq/L (136-145); eGFR For Non-African Americans > 60 (> 60)
[2018-09-25 10:35] LABS: Troponin I < 0.03 ng/mL (< 0.04)
--- NOTE | 2018-09-25 10:50 | Emergency Department Note ---
Disposition Clinical Impression: Neck pain, Paresthesia and pain of left extremity Disposition: Admitted As Inpatient Condition: Fair General Adult HPI - General Chief complaint: ED Neuro Symptoms/Deficit Stated complaint: Neuro Symptoms Time Seen by Provider: 09/25/18 09:56 Source: patient Limitations: no limitations Nursing Notes Reviewed: Yes Vital Signs Reviewed: Yes - History of Present Illness HPI Narrative: 82-year-old male brought to the emergency department for further evaluation of left neck pain, left facial paresthesias and left upper extremity pain. Patient states he started developing paresthesias of the left upper extremity at 11:00 last night, he went to bed and woke up at one point during the night with severe left sided neck pain. Patient states symptoms have persisted. He denies weakness, chest pain, shortness of breath, focal neurologic deficit, recent trauma, fever, chills, vomiting, rash. Patient denies a previous history of cardiac disease. Pain Scale: 4 - Related Data Home Medications Medication Instructions Recorded Confirmed Aspirin 81 mg PO DAILY 05/29/16 09/25/18 Finasteride [Proscar] 5 mg PO DAILY 05/29/16 09/25/18 Garlic 1,000 mg PO DAILY 05/29/16 09/25/18 Multivitamin [Multi-Day Vitamins] 1 each PO DAILY 05/29/16 09/25/18 Atkins-3/Dha/Epa/Fish Oil [Fish Oil 2 each PO DAILY 05/29/16 09/25/18 1,000 mg Softgel] Sucralfate [Carafate] 1 gm PO QID 05/19/17 09/25/18 Lisinopril [Zestril] 10 mg PO HS 09/25/18 09/25/18 Atkins-3 Fatty Acids [Fish Oil] 1,000 mg PO DAILY 09/25/18 09/25/18 Pantoprazole 40 mg PO DAILY 09/25/18 09/25/18 Sertraline [Zoloft] 50 mg PO DAILY 09/25/18 09/25/18 Previous Rx's Medication Instructions Recorded Acetaminophen [Tylenol] 1,000 mg PO Q6HR #20 cap 07/22/18 Ibuprofen 800 mg PO 1-3XD #30 tablet 07/22/18 Allergies Allergy/AdvReac Type Severity Reaction Status Date / Time azithromycin Allergy Swelling Verified 05/29/16 10:49 [From Zithromax Z-Prince] of the Eye All systems ED: reviewed and negative except as stated. Review of Systems: As Per HPI Past Medical History - Past Medical History Attestation: Yes The following information was validated with the patient. Source: patient Medical history: Reports: hypertension Surgical history: Reports: cataract, cholecystectomy, herniorrhaphy, orthopedic, other, other Psychiatric history: Reports: no psych history - Social History Smoking Status: Never smoker Smokeless Tobacco Status: No Alcohol use: Reports: none Drug use: Reports: none Physical Exam General: Alert and in no acute distress Skin: Warm, dry, intact Head: Normocephalic and atraumatic Neck: Supple, trachea midline and no tenderness Cardiovascular: RRR, no murmur, normal perfusion Respiratory: CTAB, no wheezing, cough, or respiratory distress Musculoskeletal: Normal strength, no tenderness, swelling or deformity GI: Soft, nontender, nondistended. Bowel sounds present Neuro: A&O to person, place, time and situation. No focal deficits noted on exam Psychiatric: cooperative and appropriate mood and affect. - General Limitations: no limitations General appearance: alert, in no apparent distress Course Vital Signs Temperature 98.1 F 09/25/18 09:44 Pulse Rate 74 09/25/18 09:44 Respiratory Rate 16 09/25/18 09:44 Blood Pressure 182/81 09/25/18 09:44 O2 Sat by Pulse Oximetry 99 09/25/18 09:44 Temperature 98.1 F 09/25/18 09:44 Pulse Rate 53 09/25/18 11:43 Respiratory Rate 20 09/25/18 13:27 Blood Pressure 138/64 09/25/18 13:27 O2 Sat by Pulse Oximetry 99 09/25/18 11:43 Oxygen Delivery Oxygen Delivery Room Air Medical Decision Making - MDM Narrative Medical decision making narrative: Patient had significant changes on his EKG today with ST elevations in V1, V2, V3 however he has a history of incomplete left bundle-branch block on the previous EKG 2 years ago but did not have another one to compare to. Symptoms started last night and present throughout the night, his initial troponin was negative. I spoke with [employer] police, Dr. Álvarez, regarding the patient's case a nd presentation and reported my findings. She agreed with the plan for treatment as a possible and STEMI given the EKG changes and possible cardiac equivalent of the left neck pain and left upper extremity paresthesias. Patient was given nitroglycerin in the emergency department with improvement of his neck pain. Patient will be admitted to the hospitalist for further care and evaluation. - Medical Records Medical records reviewed: Yes I reviewed the patient's medical records. - Lab Data Lab results reviewed: Yes I reviewed the patient's lab results. Result diagrams: 09/25/18 10:03 09/25/18 10:03 Lab Results 09/25/18 09/25/18 09/25/18 Range/Units 10:03 10:03 10:03 WBC 10.7 (4.3-11.1) K/mcL RBC 4.57 (4.19-5.50) M/mcL Hgb 13.0 (12.9-16.9) g/dL Hct 39.6 (37.5-50.1) % MCV 86.7 (83.0-100.0) fL MCH 28.4 (28.0-33.3) pg MCHC 32.8 (31.6-35.5) g/dL RDW 13.5 (11.5-14.5) % Plt Count 208 (140-400) K/mcL MPV 9.1 L (9.4-12.4) fL PT 10.9 (9.4-12.1) Seconds INR 1.0 APTT 33.0 (26.0-36.0) Seconds Heparin Anti-Xa, Unfract 0.02 L (0.30-0.70) IU/mL Sodium 138 (136-145) mEq/L Potassium 4.9 (3.5-5.1) mEq/L Chloride 103 (98-107) mEq/L Carbon Dioxide 30 H (23-29) mEq/L BUN 18 (8-23) mg/dL Creatinine 0.81 (0.70-1.30) mg/dL Est GFR ( Amer) > 60 (> 60) Est GFR (Non-Af Amer) > 60 (> 60) BUN/Creatinine Ratio 22 (6-26) Glucose 100 (70-105) mg/dL Calculated Osmolality 288 (280-300) Calcium 9.8 (8.6-10.3) mg/dL Troponin I < 0.03 (< 0.04) ng/mL - Radiology Data Radiology results reviewed: Yes I reviewed the patient's radiology results. - EKG Data EKG #1 EKG attestation: Yes I reviewed and interpreted this EKG. EKG results narrative: Normal sinus rhythm with a rate of 67 with left bundle-branch block with persistent ST elevations in V2, V3, P1 without reciprocal depressions. EKG #2 EKG attestation: Yes I reviewed and interpreted this EKG. EKG results narrative: Normal sinus rhythm with a rate of 67 with left bundle-branch block with persistent ST elevations in V2, V3, P1 without reciprocal depressions.
[2018-09-25] MEDS ORDERED: *HR* Heparin 5,000 UNIT/ML VIAL IVP PRN ×2 (10:51)
[2018-09-25] MEDS ORDERED: *HR* Heparin 5,000 UNIT/ML VIAL IVP ONE (10:51)
[2018-09-25 10:59] LABS: Heparin anti-factor XA UFH 0.02 IU/mL (0.30-0.70)
[2018-09-25] MEDS ORDERED: Heparin 25,000 UNIT/250 ML D5W 25,000 UNIT/250 ML IV.SOLN IVC SCH (11:00)
--- NOTE | 2018-09-25 13:51 | Internal Med History&Physical ---
Date of Encounter: 09/25/18 Time of Encounter: 11:00 Internal Medicine - H&P: HPI Chief complaint: Left neck pain with left arm paresthesias Admitted From: Home Plans for Post Hospital Care: Home History of present illness: Patient is 82-year-old male with past medical history significant for hypertension, mood disorder and BPH who presents to the ER due to left neck pain with left arm paresthesias. Patient reports a 24-hour history of left neck pain with simultaneous left arm paresthesias which has gradually gotten worse and woke him up this morning. Patient was concerned and so had started bring him into the ER for evaluation. In the ER, patients first set of troponins were negative but EKG showed LBBB. Cardiology was consulted from the ER with recommendations to start patient on heparin drip. Patient will be admitted to the medical surgical floor for ACS rule out. Past Med Surg Social Fam HX - Past Medical History Medical history: hypertension Additional medical history: vertigo, pancreatitis, arrhythmia, ibs, prostate disease Psychiatric history: no psych history - Past Surgical History Surgical History: cataract, cholecystectomy, herniorrhaphy, orthopedic, other, other Additional surgical history: ERCP,back,bladder,prostate - Social History Smoking Status: Never smoker Smokeless Tobacco Status: No Alcohol use: none Drug use: none - Family History Mother Hx Family Cardiac Disorders: Yes ([place]) Hx Family Endocrine Disorder: Yes ([place]) Father Hx Family Cancer: Yes (Colon) Brother Hx Family Cancer: Yes (Colon) Internal Medicine - H&P: Meds Aspirin 81 mg PO DAILY 05/29/16 [History] Finasteride [Proscar] 5 mg PO DAILY 05/29/16 [History] Garlic 1,000 mg PO DAILY 05/29/16 [History] Multivitamin [Multi-Day Vitamins] 1 each PO DAILY 05/29/16 [History] Eden-3/Dha/Epa/Fish Oil [Fish Oil 1,000 mg Softgel] 2 each PO DAILY 05/29/16 [History] Sucralfate [Carafate] 1 gm PO QID 05/19/17 [History] Acetaminophen [Tylenol] 1,000 mg PO Q6HR #20 cap 07/22/18 [Rx] Ibuprofen 800 mg PO 1-3XD #30 tablet 07/22/18 [Rx] Lisinopril [Zestril] 10 mg PO HS 04/14/19 [History] Eden-3 Fatty Acids [Fish Oil] 1,000 mg PO DAILY 09/25/18 [History] Pantoprazole 40 mg PO DAILY 09/25/18 [History] Sertraline [Zoloft] 50 mg PO DAILY 09/25/18 [History] Allergy/AdvReac Type Severity Reaction Status Date / Time azithromycin Allergy Swelling Verified 05/29/16 10:49 [From Zithromax Z-Prince] of the Eye All Systems PM: A 10-system review of systems was performed and is negative for pertinent findings except as documented above in the HPI. - Constitutional Vitals: Temp Pulse Resp BP Pulse Ox 98.1 F 53 20 138/64 99 09/25/18 09:44 09/25/18 11:43 09/25/18 13:27 09/25/18 13:27 09/25/18 11:43 Exam: General appearance: Present: A&O X 3, no acute distress - Head Head exam: Present: normocephalic - Eye Eye exam: Present: normal appearance - ENT ENT exam: Present: mucous membranes moist - Respiratory Respiratory exam: Present: CTAB. Absent: accessory muscle use, rales, rhonchi, wheezes - Cardiovascular Cardiovascular exam: Present: RRR, +S1, +S2. Absent: diastolic murmur, gallop, rubs, systolic murmur - GI/Abdominal GI/Abdominal exam: Present: normal bowel sounds, soft, no peritoneal signs. Absent: distended, tenderness - Extremities Exam Extremities exam: Absent: pedal edema - Neurological Exam Neurological exam: Present: alert, oriented X3, no focal deficits. Absent: altered - Psychiatric Psychiatric exam: -normal mood Skin exam: -normal color Internal Med - H&P Results - Labs CBC & Chem 7: 09/25/18 10:03 09/25/18 10:03 Labs: Short CBC 09/25/18 Range/Units 10:03 WBC 10.7 (4.3-11.1) K/mcL Hgb 13.0 (12.9-16.9) g/dL Hct 39.6 (37.5-50.1) % Plt Count 208 (140-400) K/mcL BMP 09/25/18 10:03 Sodium 138 Potassium 4.9 Chloride 103 Carbon Dioxide 30 H BUN 18 Creatinine 0.81 Glucose 100 Calcium 9.8 Cardiac Enzymes 09/25/18 Range/Units 10:03 Troponin I < 0.03 (< 0.04) ng/mL - Impressions ITS Impressions Head CT 09/25/18 09:56 IMPRESSION: Atrophy and moderate small vessel ischemic disease. Findings were discussed with Dr. Calero at approximately 10:12 a.m. on 09/25/2018. D/ / Hi Morgan MD / Hi Morgan MD Interpreting Provider: Hi Morgan MD - Assessment and Plan (1) Abnormal finding on EKG Current Visit: Yes Status: Acute Assessment and plan: Patient reports a 24-hour history of left neck pain with simultaneous left arm paresthesias which has gradually gotten worse He was found to have left bundle branch block on EKG; first set of troponins negative. Trend serial troponins and monitor on telemetry; echocardiogram pending Cardiology was consulted from the ER with recommendations to start patient on heparin drip Appreciate any further recommendations. (2) BPH (benign prostatic hyperplasia) Current Visit: No Status: Acute Assessment and plan: Continue home medications Qualifiers: Lower urinary tract symptom presence: symptoms present Qualified Code(s): N40.1 - Benign prostatic hyperplasia with lower urinary tract symptoms; R35.0 - Frequency of micturition (3) GERD (gastroesophageal reflux disease) Current Visit: No Status: Acute Assessment and plan: Continue home medications Qualifiers: Esophagitis presence: esophagitis presence not specified Qualified Code(s): K21.9 - Gastro-esophageal reflux disease without esophagitis (4) DVT prophylaxis Current Visit: No Status: Acute Assessment and plan: Patient on heparin drip as above - Time Spent With Patient Total time spent is greater than 50% in coordination of care (as documented) at patient's floor/unit and/or counseling patient:
[2018-09-25] MEDS ORDERED: Naloxone 0.4 MG/ML INJ IVP PRN (13:59)
[2018-09-25] MEDS: Sucralfate 1 GM TABLET PO SCH ×2 (15:17→20:16)
[2018-09-26] MEDS ORDERED: traMADol 50 MG TABLET PO ONE (01:13)
[2018-09-26 03:10] LABS: Basophils % 0.5 %; Eosinophils # 0.2 K/mcL (0.0-0.6); Eosinophils % 2.3 %; Hematocrit 39.1 % (37.5-50.1); Hemoglobin 12.8 g/dL (12.9-16.9); Immature Granulocytes % 0.1 % (0-4); Lymphocytes # 2.4 K/mcL (0.6-4.6); Lymphocytes % 30.1 %; Mean Corpuscular HGB Conc 32.7 g/dL (31.6-35.5); Mean Corpuscular Volume 85.6 fL (83.0-100.0); Mean Platelet Volume 9.9 fL (9.4-12.4); Monocytes # 0.9 K/mcL (0.0-1.3); Monocytes % 11.8 %; Neutrophils # 4.3 K/mcL (1.6-8.9); Platelet Count 200 K/mcL (140-400); Red Blood Count 4.57 M/mcL (4.19-5.50); Red Cell Distribution Width 13.5 % (11.5-14.5); Segmented Neutrophils % 55.2 %
[2018-09-26 03:30] LABS: BUN/Creatinine Ratio 18 (6-26); Blood Urea Nitrogen 14 mg/dL (8-23); Carbon Dioxide 27 mEq/L (23-29); Chloride 104 mEq/L (98-107); Glucose 102 mg/dL (70-105); Osmolality,Calculated 287 (280-300); Potassium 4.2 mEq/L (3.5-5.1); Sodium 138 mEq/L (136-145); eGFR For Non-African Americans > 60 (> 60)
[2018-09-26] MEDS: Sucralfate 1 GM TABLET PO SCH ×4 (05:20→20:28)
[2018-09-26] MEDS ORDERED: traMADol 50 MG TABLET PO PRN ×2 (05:21→10:38)
--- NOTE | 2018-09-26 10:09 | Cardiology Consult Note ---
Date of Encounter: 09/26/18 Time of Encounter: 09:09 Assessment and Plan Discussion w patient/family: The assessment and plan as outlined above was discussed with the patient and/or family members who expressed understanding and agreement. All questions were answered. Thank you for involving us in the care of your patient. Please call with any questions. History of Present Illness Consult date: 09/26/18 Requesting physician: Calvin Laguna Consult reason: LBBB Chief complaint: L-neck pain and L-arm paresthesia History of present illness: Mr. Henry is a 82 year old male ho HTN, vertigo, IBS, BPH. P/w worsening L-neck pain and L-arm paresthesia 1 day. Consulted for LBBB on ECG with GUNJAN 1-2mm V2-3, new c/w 2017. No dynamic ECG changes. Trop neg x3. SBP 182/81 at presentation, no O2. * [id number] ECG SR, LBBB, GUNJAN 1-2mm V2-3 [id number] ECG NSR [id number] TTE EF 60-65%, mild cLVH, moderate diastolic dysfunction, mild AR and MR, no PH [id number] Pharm SPECT no ischemia or infarct, EF 64% Past Med Surg Social Fam HX - Past Medical History Medical history: hypertension Additional medical history: vertigo, pancreatitis, arrhythmia, ibs, prostate disease Psychiatric history: no psych history - Past Surgical History Surgical History: cataract, cholecystectomy, herniorrhaphy, orthopedic, other, o ther Additional surgical history: ERCP,back,bladder,prostate - Social History Smoking Status: Never smoker Smokeless Tobacco Status: No Alcohol use: none Drug use: none - Family History Mother Hx Family Cardiac Disorders: Yes ([place]) Hx Family Endocrine Disorder: Yes (DM) Father Hx Family Cancer: Yes (Colon) Brother Hx Family Cancer: Yes (Colon) Medications and Allergies Aspirin 81 mg PO DAILY 05/29/16 [History] Finasteride [Proscar] 5 mg PO DAILY 05/29/16 [History] Garlic 1,000 mg PO DAILY 05/29/16 [History] Multivitamin [Multi-Day Vitamins] 1 each PO DAILY 05/29/16 [History] Warriors Mark-3/Dha/Epa/Fish Oil [Fish Oil 1,000 mg Softgel] 2 each PO DAILY 05/29/16 [History] Sucralfate [Carafate] 1 gm PO QID 12/06/17 [History] Acetaminophen [Tylenol] 1,000 mg PO Q6HR #20 cap 07/22/18 [Rx] Ibuprofen 800 mg PO 1-3XD #30 tablet 07/22/18 [Rx] Lisinopril [Zestril] 10 mg PO HS 09/25/18 [History] Warriors Mark-3 Fatty Acids [Fish Oil] 1,000 mg PO DAILY 09/25/18 [History] Pantoprazole 40 mg PO DAILY 09/25/18 [History] Sertraline [Zoloft] 50 mg PO DAILY 09/25/18 [History] Allergy/AdvReac Type Severity Reaction Status Date / Time azithromycin Allergy Swelling Verified 05/29/16 10:49 [From Zithromax Z-Prince] of the Eye All Systems Review: The remainder of the systems were reviewed and are negative Physical Examination Vital Signs, Last 4 Hours Temp Pulse Resp BP Pulse Ox 09/26/18 07:17 97.5 F L 50 16 158/83 97 Results 09/26/18 02:20 09/26/18 02:20 Lab Results 09/25/18 09/25/18 09/25/18 10:03 10:03 10:03 WBC 10.7 Hgb 13.0 Hct 39.6 Plt Count 208 INR 1.0 APTT 33.0 Sodium 138 Potassium 4.9 Chloride 103 Carbon Dioxide 30 H BUN 18 Creatinine 0.81 Glucose 100 Calcium 9.8 Troponin I < 0.03 09/25/18 09/25/18 09/26/18 14:15 19:51 02:20 WBC Hgb Hct Plt Count INR APTT Sodium Potassium Chloride Carbon Dioxide BUN Creatinine Glucose Calcium Troponin I < 0.03 < 0.03 < 0.03 09/26/18 09/26/18 02:20 02:20 WBC 7.9 Hgb 12.8 L Hct 39.1 Plt Count 200 INR APTT Sodium 138 Potassium 4.2 Chloride 104 Carbon Dioxide 27 BUN 14 Creatinine 0.76 Glucose 102 Calcium 9.0 Troponin I Consult Discharge Plan - Plan Referrals: Stephany Prince CNP [Primary Care Provider] - (Follow up appointment has been requested. Office will call with date and time of appointment. )
[2018-09-26] MEDS ORDERED: *HR* OxyCODONE/APAP 5/325 TABLET PO PRN (10:37)
[2018-09-26] MEDS ORDERED: 0.9 % Sodium Chloride 1,000 ML IVC SCH (10:45)
[2018-09-26] MEDS ORDERED: Regadenoson 0.4 MG/5 ML SYRINGE IVP ONE (10:49)
--- NOTE | 2018-09-26 11:22 | Cardiology Consult Note ---
<Juan Jose Hanson R - Last Filed: 09/26/18 11:19> Date of Encounter: 09/26/18 Time of Encounter: 11:19 Assessment and Plan (1) LBBB (left bundle branch block) Current Visit: Yes Status: Acute New LBBB on ECG compared to 2017. Troponins negative x 4. Left neck/chest pain is atypical given it has been constant x 2 days, worse with moving his head. No known CAD hx. Given new LBBB, will obtain TTE and Nuclear stress test. TTE 02/2017 EF 60-65%. Nuclear stress test 02/2017 negative for ischemia or infarct. Stop heparin gtt and switched to DVT prophylaxis. Further recs pending TTE and stress results. Will discuss and review with Dr. Dominguez. (2) Neck pain on left side Current Visit: Yes Status: Acute left neck pain with left arm paresthesias that started 2 nights ago. Pain has radiated into left chest area. Pain temporarily relieved with pain meds, but otherwise has been constant. Worse with moving head. Overall, symptoms are atypical. Troponins negative x 4. ECG with new LBBB. Plan for TTE and nuclear stress test as above. Discussion w patient/family: The assessment and plan as outlined above was discussed with the patient and/or family members who expressed understanding and agreement. All questions were answered. Thank you for involving us in the care of your patient. Please call with any questions. I will discuss all the above with Dr. Dominguez and make changes as necessary. History of Present Illness Consult date: 09/26/18 Consult reason: LBBB Chief complaint: left neck/arm pain History of present illness: Mr. Henry is a 82 year old male with PMH significant for hypertension, mood disorder and BPH who presents to the ER due to left neck pain with left arm paresthesias that started 2 nights ago. Pain has radiated into left chest area. Pain temporarily relieved with pain meds, but otherwise has been constant. Troponins negative x 4. ECG with new LBBB. Cardiology consulted for further recs. Prior CV testing: TTE 02/2017 EF 60-65%, mild cLVH, moderate LVDD, mild AR and MRSary No pthn. Nuclear stress test 02/2017 Gated EF 64%. Perfusion imaging negative for ischemia or infarct. Past Med Surg Social Fam HX - Past Medical History Medical history: hypertension Additional medical history: vertigo, pancreatitis, arrhythmia, ibs, prostate disease Psychiatric history: no psych history - Past Surgical History Surgical History: cataract, cholecystectomy, herniorrhaphy, orthopedic, other, other Additional surgical history: ERCP,back,bladder,prostate - Social History Smoking Status: Never smoker Smokeless Tobacco Status: No Alcohol use: none Drug use: none - Family History Mother Hx Family Cardiac Disorders: Yes (MS) Hx Family Endocrine Disorder: Yes (DM) Father Hx Family Cancer: Yes (Colon) Brother Hx Family Cancer: Yes (Colon) Medications and Allergies Aspirin 81 mg PO DAILY 05/29/16 [History] Finasteride [Proscar] 5 mg PO DAILY 05/29/16 [History] Garlic 1,000 mg PO DAILY 05/29/16 [History] Multivitamin [Multi-Day Vitamins] 1 each PO DAILY 05/29/16 [History] [place]-3/Dha/Epa/Fish Oil [Fish Oil 1,000 mg Softgel] 2 each PO DAILY 05/29/16 [History] Sucralfate [Carafate] 1 gm PO QID 05/19/17 [History] Acetaminophen [Tylenol] 1,000 mg PO Q6HR #20 cap 07/22/18 [Rx] Ibuprofen 800 mg PO 1-3XD #30 tablet 07/22/18 [Rx] Lisinopril [Zestril] 10 mg PO HS 09/25/18 [History] [place]-3 Fatty Acids [Fish Oil] 1,000 mg PO DAILY 09/25/18 [History] Pantoprazole 40 mg PO DAILY 09/25/18 [History] Sertraline [Zoloft] 50 mg PO DAILY 09/25/18 [History] Allergy/AdvReac Type Severity Reaction Status Date / Time azithromycin Allergy Swelling Verified 05/29/16 10:49 [From Zithromax Z-Prince] of the Eye All Systems Review: The remainder of the systems were reviewed and are negative - Cardiovascular Cardiovascular: as per HPI, chest pain at rest, radiating jaw, neck or arm pain Physical Examination Vital Signs Temp Pulse Resp BP Pulse Ox 09/26/18 07:17 97.5 F L 50 16 158/83 97 09/26/18 02:17 97.7 F 66 16 168/73 99 09/26/18 01:14 97.9 F 53 15 147/72 96 09/25/18 23:03 98.1 F 53 16 128/66 96 09/25/18 14:40 98.2 F 53 15 169/70 97 09/25/18 13:27 20 138/64 09/25/18 11:43 53 18 133/67 99 Intake and Output 09/25/18 09/26/18 09/26/18 23:59 07:59 15:59 Intake Total 94.35 / 94.35 97.9 / 97.9 Output Total 225 / 225 625 / 625 Balance -130.65 / -130.65 -527.1 / -527.1 Intake: IV Fluids 94.35 / 94.35 97.9 / 97.9 Heparin 25,000 UNIT/250 ML D5W 94.35 / 94.35 97.9 / 97.9 25,000 unit In 250 ml @ 12 UNIT /KG/HR 8.333 mls/hr IVC .Q24H YOAN Rx#:[id number] Oral 0 / 0 Output: Urine 225 / 225 625 / 625 Other: Meal NPO # Voids 1 1 Weight 68.2 kg Patient Weight 09/26/18 23:59 Weight 68.2 kg General: Conversant, No Apparent Distress HEENT: Atraumatic, Normocephaly, Mucus Membranes Moist Neck: No JVD, Normal carotid pulses Cardiac: Reg Rate and Rhythm, Normal S1 and S2, No Murmur Lungs: Normal Breath Sounds, No Wheeze, Rales, Rhonchi Neuro: Alert and responsive, No focal deficits noted Abdomen: Soft, Non-Tender Skin: No rashes noted on visualized skin Musculoskeletal: No Chest Wall Tenderness Extremities: No Clubbing, No Cyanosis, No Edema, Normal Pulses Results 09/26/18 02:20 09/26/18 02:20 Lab Results 09/25/18 09/25/18 09/26/18 14:15 19:51 02:20 WBC Hgb Hct Plt Count Sodium Potassium Chloride Carbon Dioxide BUN Creatinine Glucose Calcium Troponin I < 0.03 < 0.03 < 0.03 09/26/18 09/26/18 02:20 02:20 WBC 7.9 Hgb 12.8 L Hct 39.1 Plt Count 200 Sodium 138 Potassium 4.2 Chloride 104 Carbon Dioxide 27 BUN 14 Creatinine 0.76 Glucose 102 Calcium 9.0 Troponin I Short CBC 09/26/18 Range/Units 02:20 WBC 7.9 (4.3-11.1) K/mcL Hgb 12.8 L (12.9-16.9) g/dL Hct 39.1 (37.5-50.1) % Plt Count 200 (140-400) K/mcL Neutrophils # 4.3 (1.6-8.9) K/mcL BMP 09/26/18 Range/Units 02:20 Sodium 138 (136-145) mEq/L Potassium 4.2 (3.5-5.1) mEq/L Chloride 104 (98-107) mEq/L Carbon Dioxide 27 (23-29) mEq/L BUN 14 (8-23) mg/dL Creatinine 0.76 (0.70-1.30) mg/dL Glucose 102 (70-105) mg/dL Calcium 9.0 (8.6-10.3) mg/dL Cardiac Enzymes 09/26/18 09/25/18 09/25/18 Range/Units 02:20 19:51 14:15 Troponin I < 0.03 < 0.03 < 0.03 (< 0.04) ng/mL Active Medications Aspirin (Aspirin) 81 mg PO DAILY [facility] Stop: 03/28/19 09:01 Finasteride (Proscar) 5 mg PO DAILY [facility]; Protocol Stop: 03/28/19 09:01 Heparin Sodium (Porcine) (Heparin) 5,000 unit SQ Q12HCO YOAN Stop: 03/28/19 18:01 Sodium Chloride (0.9 % Sodium Chloride) 1,000 mls @ 100 mls/hr IVC .Q10H YOAN Stop: 09/26/18 20:44 Lisinopril (Zestril) 10 mg PO HS YOAN; Protocol Stop: 03/27/19 21:01 Last Admin: 09/25/18 20:17 Dose: 10 mg Naloxone HCl (Narcan) 0.4 mg IVP Q2M PRN PRN Reason: SEE COMMENTS Stop: 03/27/19 14:00 Omeprazole (Prilosec) 40 mg PO DAILY@0630 [facility] Stop: 03/28/19 06:31 Last Admin: 09/26/18 05:20 Dose: 40 mg Oxycodone/Acetaminophen (Percocet 5/325) 1 each PO Q6HR PRN PRN Reason: Severe Pain Stop: 03/28/19 10:38 Polyethylene Glycol (Miralax) 17 gm PO DAILY PRN PRN Reason: Constipation Stop: 03/27/19 19:05 Last Admin: 09/25/18 20:17 Dose: 17 gm Sertraline HCl (Zoloft) 50 mg PO DAILY [facility] Stop: 03/28/19 09:01 Sucralfate (Carafate) 1 gm PO QIDAC YOAN Stop: 03/27/19 16:31 Last Admin: 09/26/18 05:20 Dose: 1 gm Tramadol HCl (Ultram) 50 mg PO QID PRN PRN Reason: Moderate Pain Stop: 03/28/19 05:22 - Imaging and Cardiology Stress Test: pending Echo: pending - EKG Interpretation EKG results cardiology: personally reviewed (SR, LBBB), other (12 hr tele AVG HR 56, SR) Consult Discharge Plan - Plan Referrals: Stephany Prince, FINANCIAL ANALYST INTERN [Primary Care Provider] - 10/03/18 10:35 am () <Julia Dominguez - Last Filed: 09/26/18 15:37> Date of Encounter: 09/26/18 - Attending Attestation Patient was seen and evaluated independently by me. Findings, assessment and plan were discussed at length with patient, questions answered. Agree with nurse practitioner's/resident's documentation. Addition as follows, 82yoCM ho HTN, BPH. P/w left neck pain wit LUE paresthesia. Consulted for LBBB on ECG. No typical angina, dyspnea, palpitation, edema. ECG SR, LBBB with S1-2 mm GUNJAN V2-3 new c/w 2017. Trop negative. Exam non-revealing. 2017 TTE preserved EF, cLVH, mild AR/MR, no PH. A: LBBB, new findings since 2017 LUE paresthesia with neck pain P: TTE SPECT, if no ischemia, no further inpatient cardiac w/u Julia Dominguez MD, PhD Assessment and Plan Discussion w patient/family: The assessment and plan as outlined above was discussed with the patient and/or family members who expressed understanding and agreement. All questions were answered. Thank you for involving us in the care of your patient. Please call with any questions. History of Present Illness History of present illness: Mr. Henry is a 82 year old male All Systems Review: The remainder of the systems were reviewed and are negative Physical Examination Vital Signs, Last 4 Hours Temp Pulse Resp BP Pulse Ox 09/26/18 14:52 97.4 F L 55 16 181/83 97 Results 09/26/18 02:20 09/26/18 02:20 Lab Results 09/25/18 09/26/18 09/26/18 19:51 02:20 02:20 WBC 7.9 Hgb 12.8 L Hct 39.1 Plt Count 200 Sodium Potassium Chloride Carbon Dioxide BUN Creatinine Glucose Calcium Troponin I < 0.03 < 0.03 09/26/18 02:20 WBC Hgb Hct Plt Count Sodium 138 Potassium 4.2 Chloride 104 Carbon Dioxide 27 BUN 14 Creatinine 0.76 Glucose 102 Calcium 9.0 Troponin I
[2018-09-26] MEDS: Finasteride 5 MG TABLET PO SCH (14:57)
[2018-09-26] MEDS: Aspirin 81 MG TAB.CHEW PO SCH (14:57)
--- NOTE | 2018-09-26 15:31 | Internal Med Progress Note ---
Hospitalist Progress Note - Encounter Date of Encounter: 09/26/18 Time of Encounter: 09:30 - Subjective Interval History: Mr. Henry is a 82-year-old male with past medical history significant for hypertension, mood disorder and BPH who presented to the ER due to left neck pain with left arm paresthesias. He stated he was feeling very lightheadedness a nd dizziness. He also complained about left chest wall pain. Presented in the hospital and placed him on potline monitor. In the ER he does have EKG changes showed LBBB. He denied any more active chest pain. He still having severe neck pain radiating to his left arm. Still feeling lightheaded and dizziness. - Exam Vitals: Temp Pulse Resp BP Pulse Ox 97.4 F L 55 16 181/83 97 09/26/18 14:52 09/26/18 14:52 09/26/18 14:52 09/26/18 14:52 09/26/18 14:52 Exam: Gen: Alert, awake, Oriented to time,place and person Chest: Diminished breath sounds B/L, No wheezing, No crackles, No rales Heart: S1S2+ RRR No murmurs Abd: Soft, NT, BS +, No organomegaly Ext: No edema, pulses are palpable, No calf tenderness Neuro : Left arm weakness / paresthesia.. Neck pain. Skin: No rash. - Assessment and Plan (1) Paresthesia and pain of left extremity Current Visit: Yes Status: Acute Assessment and Plan: Concerning for Left cervical radiculopathy ordered MRI of spine and Brain MRI Brain MRI did not show any acute infarction reviewed his MRI of cervical spine which showed At C5-C6, there is moderate spinal canal stenosis Moderate spinal canal stenosis seen at C5-C6 with unip-dh-thivggiv stenosis at C6-C7. Mild spinal canal stenosis at C3-C4 with minimal stenosis at C2-C3. Consulted spine surgery Dr. Ashford for further eval (2) Abnormal finding on EKG Current Visit: Yes Status: Acute Assessment and Plan: Serial trop were negative Non specific EKG changes Cont ASA, Lisinopril d/c Heparin gtt no need of heparin gtt Card consulted Ordered Nuclear stress test (3) GERD (gastroesophageal reflux disease) Current Visit: No Status: Acute Assessment and Plan: Continue home medications (4) DVT prophylaxis Current Visit: No Status: Acute Assessment and Plan: on SQ Heparin (5) BPH (benign prostatic hyperplasia) Current Visit: No Status: Acute Assessment and Plan: Continue home medications - Time Spent with Patient Total time spent is greater than 50% in coordination of care (as documented) at patient's floor/unit and/or counseling patient: Internal Medicine: Result - Labs CBC & Chem 7: 09/26/18 02:20 09/26/18 02:20 Labs: Short CBC 09/26/18 Range/Units 02:20 WBC 7.9 (4.3-11.1) K/mcL Hgb 12.8 L (12.9-16.9) g/dL Hct 39.1 (37.5-50.1) % Plt Count 200 (140-400) K/mcL Neutrophils # 4.3 (1.6-8.9) K/mcL BMP 09/26/18 02:20 Sodium 138 Potassium 4.2 Chloride 104 Carbon Dioxide 27 BUN 14 Creatinine 0.76 Glucose 102 Calcium 9.0 Cardiac Enzymes 09/25/18 09/26/18 Range/Units 19:51 02:20 Troponin I < 0.03 < 0.03 (< 0.04) ng/mL - ABG Interpretation ABG results: PT/INR, D-dimer PT 10.9 Seconds (9.4-12.1) 09/25/18 10:03 - Impressions Impressions Brain MRI 09/26/18 10:36 IMPRESSION: 1. No acute intracranial abnormality. No acute infarct. 2. Mild global parenchymal volume loss with moderate chronic microvascular ischemic change. 3. There is a punctate focus of susceptibility along the ependymal surface within the posterior left lateral ventricle, which may represent sequelae of a prior microhemorrhage. D/ / Daniel Ngo MD / Daniel Ngo MD Interpreting Provider: Daniel Ngo MD Cervical Spine MRI 09/26/18 10:36 IMPRESSION: 1. At C5-C6, there is moderate spinal canal stenosis with minimal T2 hyperintensity within the cord at this level. Moderate bilateral neural foraminal narrowing. 2. Moderate spinal canal stenosis seen at C5-C6 with hhax-ka-hufqnupp stenosis at C6-C7. Mild spinal canal stenosis at C3-C4 with minimal stenosis at C2-C3. 3. Neural foraminal narrowing is seen at the remaining levels of the cervical spine as above. 4. 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 5. Bone marrow edema is seen in the right C3 and C4 facets, which may be degenerative in nature. These results were sent to the [facility] on 09/26/2018 at 2:50 pm to be communicated to the referring/covering health care provider/office. D/ / Daniel Ngo MD / Daniel Ngo MD Interpreting Provider: Daniel Ngo MD Consult Discharge Plan - Plan Referrals: Stephany Prince, CAKE PRESS OPERATOR HELPER [Primary Care Provider] - 10/03/18 10:35 am () (3) GERD (gastroesophageal reflux disease) Qualifiers: Esophagitis presence: esophagitis presence not specified Qualified Code(s): K21.9 - Gastro-esophageal reflux disease without esophagitis (5) BPH (benign prostatic hyperplasia) Qualifiers: Lower urinary tract symptom presence: symptoms present Qualified Code(s): N40.1 - Benign prostatic hyperplasia with lower urinary tract symptoms; R35.0 - Frequency of micturition
--- NOTE | 2018-09-26 16:06 | Event Note ---
Date of Encounter: 09/26/18 Time of Encounter: 16:05 - Cardiology Event Note Stress test negative for ischemia or infarct. TTE with LVEF preserved, no wall motion abnormalities. Cardiology will sign off, re-consult if needed.
--- NOTE | 2018-09-26 16:38 | Electrocardiograph Report ---
[place] [id number] Test Date: 2018-09-25 Pat Name: Lj Henry Department: EXAM2 Room: 3B22 Gender: M Marble Mason: : 1935 Requested By: Bruce Calvin Order Number: [id number] Reading MD: Zach Gupta Measurements Intervals [place] Rate: 70 P: 61 PA: 161 QRS: -22 QRSD: 132 T: 74 QT: 430 QTc: 464 Interpretive Statements Sinus rhythm Left bundle branch block Electronically Signed On 09-26-2018 16:36:15 EDT by Zach Gupta
--- NOTE | 2018-09-26 16:40 | Electrocardiograph Report ---
[place] [address] Test Date: 2018-09-25 Pat Name: Lj Henry Department: EXAM2 Room: 3B22 Gender: M Supervisor Respiratory: : 1935 Requested By: Bruce Calvin Order Number: [id number] Reading MD: Zach Gupta Measurements Intervals [place] Rate: 53 P: 62 ND: 161 QRS: -23 QRSD: 134 T: 72 QT: 488 QTc: 459 Interpretive Statements Sinus rhythm Left bundle branch block Electronically Signed On 09-26-2018 16:38:28 EDT by Zach Gupta
[2018-09-26] MEDS: amLODIPine 5 MG TABLET PO SCH (16:46)
[2018-09-26] MEDS: predniSONE 20 MG TABLET PO SCH (16:46)
[2018-09-26] MEDS: *HR* Heparin 5,000 UNIT/ML VIAL SQ SCH (16:47)
[2018-09-27] MEDS: *HR* Heparin 5,000 UNIT/ML VIAL SQ SCH (05:34)
[2018-09-27 07:35] VITALS: BP 163/79
[2018-09-27] MEDS: predniSONE 20 MG TABLET PO SCH (08:24)
[2018-09-27] MEDS: Finasteride 5 MG TABLET PO SCH (08:24)
[2018-09-27] MEDS: Sucralfate 1 GM TABLET PO SCH (08:24)
[2018-09-27] MEDS: Aspirin 81 MG TAB.CHEW PO SCH (08:24)
[2018-09-27] MEDS: amLODIPine 5 MG TABLET PO SCH (08:24)
--- NOTE | 2018-09-27 10:07 | Discharge Summary ---
- NOTES TO OUTPATIENT PROVIDER Notes to Outpatient Provider: f/u with PCP in one week Orders not resulted at time of discharge: Pending orders 09/26/18 10:26 NM mónica perf SPECT multi [NM] Routine Date of Encounter: 09/27/18 Time of Encounter: 10:02 - Discharge Diagnosis (1) Paresthesia and pain of left extremity Priority: Primary Status: Acute (2) Abnormal finding on EKG Priority: Primary Status: Acute (3) GERD (gastroesophageal reflux disease) Priority: Secondary Status: Acute Qualifiers: Esophagitis presence: esophagitis presence not specified Qualified Code(s): K21.9 - Gastro-esophageal reflux disease without esophagitis (4) DVT prophylaxis Priority: Secondary Status: Acute (5) BPH (benign prostatic hyperplasia) Priority: Secondary Status: Acute Qualifiers: Lower urinary tract symptom presence: symptoms present Qualified Code(s): N40.1 - Benign prostatic hyperplasia with lower urinary tract symptoms; R35.0 - Frequency of micturition Hospital course: Mr. Henry is a 82-year-old male with past medical history significant for hypertension, mood disorder and BPH who presented to the ER due to left neck pain with left arm paresthesias. He stated he was feeling very lightheadedness and dizziness. He also complained about left chest wall pain. Presented in the hospital and placed him on conveyor monitor. In the ER he does have EKG changes showed LBBB. He was admitted in the hospital and placed him on conveyor monitor. His serial troponin's came back as negative. His nuclear stress test came back is negative for any ischemia. He c/o severe neck pain radiating to his left arm. His Brain MRI did not show any acute ischemia / infarction. His MRI of cervical spine showed @ C5-C6 there is moderate spinal canal stenosis . He also moderate spinal canal stenosis seen at C5-C6 with vfar-ai-cyhikmty stenosis at C6-C7. Mild spinal canal stenosis at C3-C4 with minimal stenosis at C2-C3. He was started on PO steroids and analgesics as needed. Consulted spine surgery Dr. Ashford for further eval who evaluated the pt and did not recommend any interventions now. Since his pain improved and he does not have any weakness / spasticity in Left arm, recommend to f/u with him as an out pt. Will d/c him home in stable condition today. - Time Spent with Patient Total time spent providing and/or coordinating discharge services: - Discharge Medications Prescriptions: New amLODIPine [Norvasc] 5 mg PO DAILY #30 tablet Cyclobenzaprine HCl 2.5 mg PO BID #10 tablet predniSONE [PredniSONE] 40 mg PO DAILY #8 tablet Tramadol HCl [Ultram] 50 mg PO TID PRN 7 Days #20 tab PRN Reason: Pain Lisinopril [Zestril] 20 mg PO DAILY #30 tablet Continue Finasteride [Proscar] 5 mg PO DAILY Aspirin 81 mg PO DAILY [place]-3/Dha/Epa/Fish Oil [Fish Oil 1,000 mg Softgel] 2 cap PO DAILY Multivitamin [Multi-Day Vitamins] 1 tab PO DAILY Garlic 1,000 mg PO DAILY Sucralfate [Carafate] 1 gm PO QID Pantoprazole Sodium [Protonix] 40 mg PO DAILY Sertraline [Zoloft] 50 mg PO DAILY Changed Acetaminophen [Tylenol] 500 mg PO Q6HR PRN #0 PRN Reason: Pain Discontinued Lisinopril [Zestril] 10 mg PO HS Ibuprofen [Ibu] 800 mg PO TID PRN PRN Reason: Pain Home Medications: Aspirin 81 mg PO DAILY 05/29/16 [History] Finasteride [Proscar] 5 mg PO DAILY 05/29/16 [History] Garlic 1,000 mg PO DAILY 05/29/16 [History] Multivitamin [Multi-Day Vitamins] 1 tab PO DAILY 05/29/16 [History] [place]-3/Dha/Epa/Fish Oil [Fish Oil 1,000 mg Softgel] 2 cap PO DAILY 05/29/16 [History] Sucralfate [Carafate] 1 gm PO QID 05/19/17 [History] Pantoprazole Sodium [Protonix] 40 mg PO DAILY 09/25/18 [History] Sertraline [Zoloft] 50 mg PO DAILY 09/25/18 [History] Acetaminophen [Tylenol] 500 mg PO Q6HR PRN #0 09/27/18 [Rx] Cyclobenzaprine HCl 2.5 mg PO BID #10 tablet 09/27/18 [Rx] Lisinopril [Zestril] 20 mg PO DAILY #30 tablet 09/27/18 [Rx] Tramadol HCl [Ultram] 50 mg PO TID PRN 7 Days #20 tab 09/27/18 [Rx] amLODIPine [Norvasc] 5 mg PO DAILY #30 tablet 09/27/18 [Rx] predniSONE [PredniSONE] 40 mg PO DAILY #8 tablet 09/27/18 [Rx] Allergies/Adverse Reactions: Allergy/AdvReac Type Severity Reaction Status Date / Time azithromycin Allergy Swelling Verified 05/29/16 10:49 [From Zithromax Z-Prince] of the Eye Date of admission: 09/25/18 12:50 Primary care physician: Stephany Prince CNP Consults: 09/25/18 13:58 Consult to Cardiology [CONS] Routine Comment: Consulting Provider: Card[facility] Reason for Consult: Left bundle branch block on EKG Call Completed: No 09/26/18 15:25 Consult to Orthopedic Surgery [CONS] Routine Consulting Provider: [facility] Reason for Consult: Consult Dr. Ashford For moderate cervical spinal stenosis with radiculopathy symptoms Time Notified: 15:26 Call Completed: Yes - Constitutional Vitals: Temp Pulse Resp BP Pulse Ox 97.4 F L 77 18 163/79 97 09/27/18 07:33 09/27/18 07:33 09/27/18 07:33 09/27/18 07:33 09/27/18 07:33 General appearance: Present: A&O X 3, no acute distress, answers questions appropriately Exam: Gen: Alert, awake, Oriented to time,place and person Chest: Diminished breath sounds B/L, No wheezing, No crackles, No rales Heart: S1S2+ RRR No murmurs Abd: Soft, NT, BS +, No organomegaly Ext: No edema, pulses are palpable, No calf tenderness Neuro : No focal neuro deficits Skin: No rash. - Patient Status Disposition: Home, Self-Care Condition: Good Overall status at discharge: patient is back to baseline - Discharge Instructions Follow Up With: Stephany Prince CNP [Primary Care Provider] - 10/03/18 10:35 am () Gene Ashford Jr, MD [Partnered Physician] - 10/20/18 10:15 am - Diet and Activity Activity: increase activity as tolerated Diet: low salt diet
== END 2018-09-27 11:04 | disposition home or self-care (01) ==
LOC: 3BNU 09:39 → EMEROOARM 09:39 → 3BNU 13:50 → SUATTDRO 13:59
PROVIDERS: ADMIT Hospitalist; ATTEND Family Medicine

== ENCOUNTER 2019-04-16 09:14 | Observation (INO) ==
[2019-04-16 09:49] LABS: Basophils % 0.5 %; Eosinophils # 0.1 K/mcL (0.0-0.6); Hematocrit 38.2 % (37.5-50.1); Hemoglobin 13.2 g/dL (12.9-16.9); Immature Granulocytes % 0.2 % (0-4); Lymphocytes # 2.3 K/mcL (0.6-4.6); Lymphocytes % 28.7 %; Mean Corpuscular HGB Conc 34.6 g/dL (31.6-35.5); Mean Corpuscular Hemoglobin 28.9 pg (28.0-33.3); Mean Corpuscular Volume 83.8 fL (83.0-100.0); Mean Platelet Volume 9.3 fL (9.4-12.4); Monocytes # 0.9 K/mcL (0.0-1.3); Monocytes % 10.6 %; Neutrophils # 4.8 K/mcL (1.6-8.9); Platelet Count 250 K/mcL (140-400); Red Blood Count 4.56 M/mcL (4.19-5.50); Red Cell Distribution Width 13.2 % (11.5-14.5); White Blood Count 8.1 K/mcL (4.3-11.1)
[2019-04-16] MEDS ORDERED: Isovue-370 500 ML BOTTLE IVP ONE (10:02)
[2019-04-16 10:12] LABS: BUN/Creatinine Ratio 17 (6-26); Blood Urea Nitrogen 15 mg/dL (8-23); Calcium 9.2 mg/dL (8.6-10.3); Carbon Dioxide 27 mEq/L (23-29); Chloride 99 mEq/L (98-107); Glucose 116 mg/dL (70-105); Osmolality,Calculated 280 (280-300); Potassium 4.3 mEq/L (3.5-5.1); Sodium 134 mEq/L (136-145); eGFR For African Americans > 60 (> 60); eGFR For Non-African Americans > 60 (> 60)
[2019-04-16 10:13] LABS: Troponin I < 0.03 ng/mL (< 0.04)
[2019-04-16] MEDS ORDERED: Nitroglycerin 25 MG/250 ML INFUS..BTL IVC SCH (10:15)
[2019-04-16] MEDS ORDERED: Mag Hydrox/Al Hydrox/Simeth 30 ML UDC PO PRN (15:15)
[2019-04-16] MEDS ORDERED: Acetaminophen 325 MG TABLET PO PRN (15:15)
[2019-04-16] MEDS ORDERED: *HR* Promethazine 25 MG/ML VIAL IVP PRN (15:15)
[2019-04-16] MEDS ORDERED: Ondansetron 4 MG/2 ML VIAL IVP PRN (15:15)
[2019-04-16] MEDS ORDERED: MOM Conc 10 ML UD.LIQ PO PRN (15:15)
[2019-04-16] MEDS ORDERED: Naloxone 0.4 MG/ML INJ IVP PRN (15:15)
[2019-04-16] MEDS ORDERED: traMADol 50 MG TABLET PO PRN (15:15)
[2019-04-16] MEDS: *HR* Heparin 5,000 UNIT/ML VIAL SQ SCH (16:33)
[2019-04-16] MEDS: Sucralfate 1 GM TABLET PO SCH ×2 (16:33→20:38)
[2019-04-16] MEDS: Pantoprazole 40 MG VIAL IVP SCH (17:49)
[2019-04-17 04:57] LABS: Basophils % 0.6 %; Eosinophils # 0.3 K/mcL (0.0-0.6); Eosinophils % 3.9 %; Hematocrit 37.8 % (37.5-50.1); Hemoglobin 12.6 g/dL (12.9-16.9); Immature Granulocytes % 0.3 % (0-4); Lymphocytes # 2.1 K/mcL (0.6-4.6); Lymphocytes % 31.8 %; Mean Corpuscular HGB Conc 33.3 g/dL (31.6-35.5); Mean Corpuscular Hemoglobin 28.4 pg (28.0-33.3); Mean Corpuscular Volume 85.1 fL (83.0-100.0); Mean Platelet Volume 9.4 fL (9.4-12.4); Monocytes # 0.9 K/mcL (0.0-1.3); Neutrophils # 3.3 K/mcL (1.6-8.9); Platelet Count 227 K/mcL (140-400); Red Blood Count 4.44 M/mcL (4.19-5.50); Red Cell Distribution Width 13.2 % (11.5-14.5); Segmented Neutrophils % 50.4 %; White Blood Count 6.6 K/mcL (4.3-11.1)
[2019-04-17 05:16] LABS: BUN/Creatinine Ratio 16 (6-26); Blood Urea Nitrogen 13 mg/dL (8-23); Calcium 9.1 mg/dL (8.6-10.3); Carbon Dioxide 27 mEq/L (23-29); Chloride 102 mEq/L (98-107); Chol/HDL Ratio 2.4 (0-4.9); Cholesterol 150 mg/dL (< 200); Glucose 94 mg/dL (70-105); HDL Cholesterol 62 mg/dL (40-59); LDL Cholesterol,Calculated 73 mg/dL (0-99); Osmolality,Calculated 282 (280-300); Phosphorous 3.8 mg/dL (2.7-4.5); Potassium 4.3 mEq/L (3.5-5.1); Sodium 136 mEq/L (136-145); Triglycerides 76 mg/dL (< 150); eGFR For African Americans > 60 (> 60); eGFR For Non-African Americans > 60 (> 60)
[2019-04-17] MEDS: Pantoprazole 40 MG VIAL IVP SCH (06:14)
[2019-04-17] MEDS: *HR* Heparin 5,000 UNIT/ML VIAL SQ SCH (06:14)
[2019-04-17] MEDS ORDERED: Regadenoson 0.4 MG/5 ML SYRINGE IVP ONE (06:15)
[2019-04-17] MEDS ORDERED: Aspirin 81 MG TAB.CHEW PO SCH (09:00)
[2019-04-17] MEDS ORDERED: Lisinopril 20 MG TABLET PO SCH (09:00)
[2019-04-17] MEDS ORDERED: NON-FORMULARY MEDICATION 1 EACH EACH (Omega-3/Dha/Epa/Fish Oil [Fish Oil 1,000 Mg Softgel] PO SCH (09:00)
[2019-04-17] MEDS ORDERED: Multivit/Ca/Min/Fe/FA 1 TAB TABLET PO SCH (09:00)
[2019-04-17] MEDS ORDERED: amLODIPine 5 MG TABLET PO SCH (09:00)
[2019-04-17 11:58] VITALS: BP 150/72
[2019-04-17] MEDS: Sucralfate 1 GM TABLET PO SCH ×2 (12:13→12:17)
== END 2019-04-17 15:53 | disposition home or self-care (01) ==
LOC: 3BNU 09:14 → EMEROOARM 09:14 → 3BNU 13:55
PROVIDERS: ADMIT Internal Medicine; ATTEND Internal Medicine

== ENCOUNTER 2019-05-12 11:38 | Observation (INO) ==
[2019-05-12] MEDS ORDERED: 0.9 % Sodium Chloride 500 ML IVC ONE (11:46)
[2019-05-12 12:08] LABS: Basophils # 0.1 K/mcL (0.0-0.2); Basophils % 0.5 %; Eosinophils # 0.1 K/mcL (0.0-0.6); Eosinophils % 0.9 %; Hematocrit 39.6 % (37.5-50.1); Hemoglobin 13.3 g/dL (12.9-16.9); Immature Granulocytes % 0.4 % (0-4); Lymphocytes # 3.1 K/mcL (0.6-4.6); Lymphocytes % 28.1 %; Mean Corpuscular HGB Conc 33.6 g/dL (31.6-35.5); Mean Corpuscular Hemoglobin 28.5 pg (28.0-33.3); Mean Platelet Volume 9.5 fL (9.4-12.4); Monocytes # 1.3 K/mcL (0.0-1.3); Monocytes % 11.6 %; Neutrophils # 6.4 K/mcL (1.6-8.9); Platelet Count 262 K/mcL (140-400); Red Blood Count 4.66 M/mcL (4.19-5.50); Red Cell Distribution Width 13.9 % (11.5-14.5); Segmented Neutrophils % 58.5 %
[2019-05-12 12:10] LABS: Prothrombin Time 11.8 Seconds (9.4-12.1)
[2019-05-12 12:12] LABS: Activated Partial Thrombo Time 32.5 Seconds (26.0-36.0)
[2019-05-12 12:23] LABS: BUN/Creatinine Ratio 20 (6-26); Blood Urea Nitrogen 24 mg/dL (8-23); Calcium 9.2 mg/dL (8.6-10.3); Carbon Dioxide 26 mEq/L (23-29); Chloride 104 mEq/L (98-107); Glucose 112 mg/dL (70-105); Osmolality,Calculated 291 (280-300); Potassium 4.7 mEq/L (3.5-5.1); Sodium 138 mEq/L (136-145); eGFR For African Americans > 60 (> 60); eGFR For Non-African Americans 58 (> 60)
[2019-05-12 12:24] LABS: Troponin I 0.03 ng/mL (< 0.04)
[2019-05-12] MEDS ORDERED: *HR* Enoxaparin 80 MG/0.8 ML SYRINGE SQ STA (12:30)
[2019-05-12] MEDS ORDERED: Naloxone 0.4 MG/ML INJ IVP PRN (12:57)
[2019-05-12] MEDS: Sucralfate 1 GM TABLET PO SCH (16:51)
[2019-05-12] MEDS ORDERED: *HR* Enoxaparin 80 MG/0.8 ML SYRINGE SQ SCH (22:00)
[2019-05-12] MEDS: Diltiazem SR (12hr) 90 MG CAPSULE PO SCH (23:40)
[2019-05-13] MEDS: Pantoprazole 40 MG VIAL IVP SCH ×2 (01:43→18:30)
[2019-05-13 03:03] LABS: Basophils % 0.3 %; Eosinophils # 0.1 K/mcL (0.0-0.6); Eosinophils % 1.1 %; Hematocrit 37.7 % (37.5-50.1); Hemoglobin 12.5 g/dL (12.9-16.9); Immature Granulocytes % 0.2 % (0-4); Lymphocytes # 2.6 K/mcL (0.6-4.6); Lymphocytes % 28.7 %; Mean Corpuscular HGB Conc 33.2 g/dL (31.6-35.5); Mean Corpuscular Hemoglobin 28.8 pg (28.0-33.3); Mean Corpuscular Volume 86.9 fL (83.0-100.0); Monocytes % 11.3 %; Neutrophils # 5.3 K/mcL (1.6-8.9); Platelet Count 227 K/mcL (140-400); Red Blood Count 4.34 M/mcL (4.19-5.50); Red Cell Distribution Width 13.7 % (11.5-14.5); Segmented Neutrophils % 58.4 %
[2019-05-13 03:31] LABS: BUN/Creatinine Ratio 21 (6-26); Blood Urea Nitrogen 18 mg/dL (8-23); Calcium 8.7 mg/dL (8.6-10.3); Carbon Dioxide 25 mEq/L (23-29); Chloride 103 mEq/L (98-107); Glucose 98 mg/dL (70-105); Osmolality,Calculated 288 (280-300); Potassium 4.3 mEq/L (3.5-5.1); Sodium 138 mEq/L (136-145); eGFR For African Americans > 60 (> 60); eGFR For Non-African Americans > 60 (> 60)
[2019-05-13] MEDS: Sucralfate 1 GM TABLET PO SCH ×3 (06:26→18:30)
[2019-05-13] MEDS ORDERED: amLODIPine 5 MG TABLET PO SCH (09:00)
[2019-05-13] MEDS: Finasteride 5 MG TABLET PO SCH (10:51)
[2019-05-13] MEDS: Aspirin Enteric Coated 81 MG Tablet PO SCH (10:51)
[2019-05-13] MEDS: Diltiazem CD (24hr) 120 MG CAPSULE PO SCH (12:03)
[2019-05-13] MEDS: Apixaban 5 MG TABLET PO SCH ×2 (12:03→20:10)
[2019-05-13] MEDS: Lisinopril 20 MG TABLET PO SCH (12:03)
[2019-05-13] MEDS ORDERED: *HR* Metoprolol 5 MG/5 ML VIAL IVP ONE ×2 (14:40→14:49)
[2019-05-13] MEDS ORDERED: 0.9 % Sodium Chloride 500 ML IVC PRN (17:17)
[2019-05-14] MEDS: Pantoprazole 40 MG VIAL IVP SCH ×2 (06:46→17:00)
[2019-05-14] MEDS: Apixaban 5 MG TABLET PO SCH ×2 (08:19→21:04)
[2019-05-14] MEDS: Diltiazem CD (24hr) 120 MG CAPSULE PO SCH (08:19)
[2019-05-14] MEDS: Finasteride 5 MG TABLET PO SCH (08:19)
[2019-05-14] MEDS: Sucralfate 1 GM TABLET PO SCH ×3 (08:19→17:00)
[2019-05-14] MEDS: Aspirin Enteric Coated 81 MG Tablet PO SCH (08:19)
[2019-05-14] MEDS: Lisinopril 20 MG TABLET PO SCH (08:19)
[2019-05-14] MEDS ORDERED: predniSONE 20 MG TABLET PO ONE (08:41)
[2019-05-15] MEDS: Pantoprazole 40 MG VIAL IVP SCH (06:17)
[2019-05-15] MEDS: Sucralfate 1 GM TABLET PO SCH ×3 (09:09→16:08)
[2019-05-15] MEDS: Finasteride 5 MG TABLET PO SCH (09:10)
[2019-05-15] MEDS: Diltiazem CD (24hr) 120 MG CAPSULE PO SCH (09:10)
[2019-05-15] MEDS: Aspirin Enteric Coated 81 MG Tablet PO SCH (09:10)
[2019-05-15] MEDS: Apixaban 5 MG TABLET PO SCH ×2 (09:10→21:21)
[2019-05-15] MEDS ORDERED: Lidocaine Viscous Oral Soln 15 ML SOLUTION MM PRN (10:37)
[2019-05-15] MEDS ORDERED: 0.9 % Sodium Chloride 500 ML IVC ONE (10:39)
[2019-05-15] MEDS: Lisinopril 20 MG TABLET PO SCH (10:42)
[2019-05-15] MEDS: *HR* Midazolam HCl 5 MG/5 ML VIAL IVP PRN ×2 (11:05→11:10)
[2019-05-15] MEDS: *HR* FentaNYL (PF) 100 MCG/2 ML VIAL IVP PRN ×2 (11:05→11:15)
[2019-05-15] MEDS: Diltiazem SR (12hr) 90 MG CAPSULE PO SCH (16:06)
[2019-05-16] MEDS ORDERED: Nitroglycerin 0.4 MG TAB.SUBL SL ONE (04:37)
[2019-05-16] MEDS: Nitroglycerin 0.4 MG TAB.SUBL SL PRN ×2 (04:40→04:45)
[2019-05-16 07:09] VITALS: BP 143/75
[2019-05-16] MEDS: Sucralfate 1 GM TABLET PO SCH (09:09)
[2019-05-16] MEDS: Apixaban 5 MG TABLET PO SCH (09:10)
[2019-05-16] MEDS: Finasteride 5 MG TABLET PO SCH (09:10)
[2019-05-16] MEDS: Aspirin Enteric Coated 81 MG Tablet PO SCH (09:10)
[2019-05-16] MEDS: Diltiazem CD (24hr) 120 MG CAPSULE PO SCH (09:10)
[2019-05-16] MEDS: Lisinopril 20 MG TABLET PO SCH (09:10)
== END 2019-05-16 12:04 | disposition home or self-care (01) ==
LOC: EMEROOARM 11:38 → 2NENU 11:38 → SUATTDRO 12:46 → 2NENU 14:45
PROVIDERS: ADMIT Internal Medicine; ATTEND Internal Medicine

== ENCOUNTER 2019-05-19 10:45 | Observation (INO) ==
[2019-05-19 11:34] LABS: Basophils % 0.3 %; Eosinophils # 0.1 K/mcL (0.0-0.6); Eosinophils % 0.5 %; Hematocrit 39.6 % (37.5-50.1); Hemoglobin 13.4 g/dL (12.9-16.9); Immature Granulocytes % 0.7 % (0-4); Lymphocytes # 1.7 K/mcL (0.6-4.6); Lymphocytes % 14.3 %; Mean Corpuscular HGB Conc 33.8 g/dL (31.6-35.5); Mean Corpuscular Hemoglobin 28.6 pg (28.0-33.3); Mean Corpuscular Volume 84.6 fL (83.0-100.0); Mean Platelet Volume 9.9 fL (9.4-12.4); Monocytes # 0.9 K/mcL (0.0-1.3); Monocytes % 7.6 %; Neutrophils # 8.9 K/mcL (1.6-8.9); Platelet Count 261 K/mcL (140-400); Red Blood Count 4.68 M/mcL (4.19-5.50); Red Cell Distribution Width 13.8 % (11.5-14.5); Segmented Neutrophils % 76.6 %; White Blood Count 11.6 K/mcL (4.3-11.1)
[2019-05-19 11:45] LABS: INR 1.6; Prothrombin Time 18.1 Seconds (9.4-12.1)
[2019-05-19 11:56] LABS: BUN/Creatinine Ratio 24 (6-26); Blood Urea Nitrogen 22 mg/dL (8-23); Calcium 9.6 mg/dL (8.6-10.3); Carbon Dioxide 26 mEq/L (23-29); Chloride 103 mEq/L (98-107); Glucose 125 mg/dL (70-105); Osmolality,Calculated 287 (280-300); Potassium 4.3 mEq/L (3.5-5.1); Sodium 136 mEq/L (136-145); Troponin I < 0.03 ng/mL (< 0.04); eGFR For African Americans > 60 (> 60); eGFR For Non-African Americans > 60 (> 60)
[2019-05-19] MEDS ORDERED: Naloxone 0.4 MG/ML INJ IVP PRN (15:33)
[2019-05-19] MEDS ORDERED: Ondansetron ODT 4 MG TAB.RAPDIS SL PRN (15:53)
[2019-05-19] MEDS ORDERED: 0.9 % Sodium Chloride 1,000 ML IVC SCH (16:00)
[2019-05-19] MEDS: Apixaban 5 MG TABLET PO SCH (20:36)
[2019-05-20 05:41] LABS: Hematocrit 35.1 % (37.5-50.1); Mean Corpuscular Hemoglobin 28.6 pg (28.0-33.3); Mean Corpuscular Volume 86.7 fL (83.0-100.0); Mean Platelet Volume 10.3 fL (9.4-12.4); Platelet Count 246 K/mcL (140-400); Red Blood Count 4.05 M/mcL (4.19-5.50); Red Cell Distribution Width 13.6 % (11.5-14.5); White Blood Count 8.9 K/mcL (4.3-11.1)
[2019-05-20 05:42] LABS: Hemoglobin 11.6 g/dL (12.9-16.9)
[2019-05-20 06:00] LABS: Alanine Aminotransferase 9 Units/L (7-52); Albumin 3.4 g/dL (3.5-5.7); Albumin/Globulin Ratio 1.4 (1.1-2.2); Alkaline Phosphatase 80 Units/L (34-104); Aspartate Amino Transferase 11 Units/L (13-39); BUN/Creatinine Ratio 25 (6-26); Bilirubin,Total 0.3 mg/dL (0.3-1.0); Blood Urea Nitrogen 20 mg/dL (8-23); Calcium 8.5 mg/dL (8.6-10.3); Carbon Dioxide 24 mEq/L (23-29); Chloride 104 mEq/L (98-107); Globulin 2.5 g/dL (2.4-3.5); Glucose 134 mg/dL (70-105); Osmolality,Calculated 293 (280-300); Sodium 139 mEq/L (136-145); Total Protein 5.9 g/dL (6.4-8.9); eGFR For African Americans > 60 (> 60); eGFR For Non-African Americans > 60 (> 60)
[2019-05-20] MEDS ORDERED: Acetaminophen 325 MG TABLET PO PRN (07:46)
[2019-05-20] MEDS: Apixaban 5 MG TABLET PO SCH (08:00)
[2019-05-20] MEDS ORDERED: Aspirin Enteric Coated 81 MG Tablet PO SCH (09:00)
[2019-05-20] MEDS ORDERED: Finasteride 5 MG TABLET PO SCH (09:00)
[2019-05-20] MEDS ORDERED: Diltiazem CD (24hr) 120 MG CAPSULE PO SCH (14:00)
[2019-05-20 15:54] VITALS: BP 123/58
== END 2019-05-20 18:39 | disposition home or self-care (01) ==
LOC: 3BNU 10:45 → EMEROOARM 10:45 → SUATTDRO 14:40 → 3BNU 15:17
PROVIDERS: ADMIT Family Medicine; ATTEND Family Medicine

== ENCOUNTER 2020-05-01 13:52 | Observation (INO) ==
[2020-05-01 14:35] LABS: Basophils % 0.3 %; Eosinophils # 0.1 K/mcL (0.0-0.6); Eosinophils % 0.4 %; Hematocrit 40.9 % (37.5-50.1); Hemoglobin 13.2 g/dL (12.9-16.9); Immature Granulocytes % 0.3 % (0-4); Lymphocytes # 1.4 K/mcL (0.6-4.6); Lymphocytes % 11.6 %; Mean Corpuscular HGB Conc 32.3 g/dL (31.6-35.5); Mean Corpuscular Hemoglobin 27.7 pg (28.0-33.3); Mean Corpuscular Volume 85.9 fL (83.0-100.0); Monocytes # 0.7 K/mcL (0.0-1.3); Monocytes % 5.9 %; Neutrophils # 9.6 K/mcL (1.6-8.9); Platelet Count 224 K/mcL (140-400); Red Blood Count 4.76 M/mcL (4.19-5.50); Red Cell Distribution Width 13.4 % (11.5-14.5); Segmented Neutrophils % 81.5 %; White Blood Count 11.7 K/mcL (4.3-11.1)
[2020-05-01 14:44] LABS: INR 1.2
[2020-05-01 14:55] LABS: BUN/Creatinine Ratio 19 (6-26); Blood Urea Nitrogen 18 mg/dL (8-23); Calcium 9.2 mg/dL (8.6-10.3); Carbon Dioxide 27 mEq/L (23-29); Chloride 100 mEq/L (98-107); Glucose 151 mg/dL (70-105); Osmolality,Calculated 285 (280-300); Potassium 4.2 mEq/L (3.5-5.1); Sodium 135 mEq/L (136-145); Troponin I < 0.03 ng/mL (< 0.04); eGFR For African Americans > 60 (> 60); eGFR For Non-African Americans > 60 (> 60)
[2020-05-01 15:59] LABS: Adenovirus Not Detected (Not Detect); Bordetella Pertussis Not Detected (Not Detect); Chlamydophila pneumoniae Not Detected (Not Detect); Coronavirus 229E Not Detected (Not Detect); Coronavirus HKU1 Not Detected (Not Detect); Coronavirus NL63 Not Detected (Not Detect); Coronavirus OC43 Not Detected (Not Detect); Human Metapneumovirus Not Detected (Not Detect); Human Rhinovirus/Enterovirus Not Detected (Not Detect); Influenza A Subtype 2009 H1 Not Detected (Not Detect); Influenza B Not Detected (Not Detect); Mycoplasma pneumoniae Not Detected (Not Detect); Parainfluenza Virus 1 Not Detected (Not Detect); Parainfluenza Virus 2 Not Detected (Not Detect); Parainfluenza Virus 3 Not Detected (Not Detect); Parainfluenza Virus 4 Not Detected (Not Detect); Respiratory Syncytial Virus Not Detected (Not Detect); SARS-CoV-2 Not Detected (Not Detect)
[2020-05-01] MEDS ORDERED: Naloxone 0.4 MG/ML INJ IVP PRN (18:36)
[2020-05-01] MEDS ORDERED: Acetaminophen 325 MG TABLET PO PRN (18:36)
[2020-05-01] MEDS ORDERED: 0.9 % Sodium Chloride 1,000 ML IVC SCH (18:45)
[2020-05-01] MEDS: Primidone 50 MG TABLET PO SCH (20:47)
[2020-05-01] MEDS: Apixaban 5 MG TABLET PO SCH (20:47)
[2020-05-02 01:37] LABS: Hematocrit 36.7 % (37.5-50.1); Mean Corpuscular HGB Conc 32.7 g/dL (31.6-35.5); Mean Corpuscular Hemoglobin 27.8 pg (28.0-33.3); Mean Platelet Volume 9.7 fL (9.4-12.4); Platelet Count 200 K/mcL (140-400); Red Blood Count 4.32 M/mcL (4.19-5.50); Red Cell Distribution Width 13.2 % (11.5-14.5); White Blood Count 10.1 K/mcL (4.3-11.1)
[2020-05-02 01:56] LABS: BUN/Creatinine Ratio 23 (6-26); Blood Urea Nitrogen 17 mg/dL (8-23); Calcium 8.6 mg/dL (8.6-10.3); Carbon Dioxide 24 mEq/L (23-29); Chloride 105 mEq/L (98-107); Chol/HDL Ratio 2.2 (0-4.9); Cholesterol 137 mg/dL (< 200); Glucose 95 mg/dL (70-105); HDL Cholesterol 63 mg/dL (40-59); LDL Cholesterol,Calculated 63 mg/dL (< 100); Osmolality,Calculated 281 (280-300); Phosphorous 3.8 mg/dL (2.7-4.5); Potassium 3.9 mEq/L (3.5-5.1); Sodium 135 mEq/L (136-145); Triglycerides 54 mg/dL (< 150); eGFR For African Americans > 60 (> 60); eGFR For Non-African Americans > 60 (> 60)
[2020-05-02] MEDS: Primidone 50 MG TABLET PO SCH ×2 (08:29→21:34)
[2020-05-02] MEDS: Aspirin Enteric Coated 81 MG Tablet PO SCH (08:29)
[2020-05-02] MEDS: DilTIAZem CD (24hr) 120 MG CAP.ER.24H PO SCH (08:29)
[2020-05-02] MEDS: Finasteride 5 MG TABLET PO SCH (08:29)
[2020-05-02] MEDS: Apixaban 5 MG TABLET PO SCH ×2 (08:29→21:33)
[2020-05-02] MEDS: Sucralfate 1 GM TABLET PO SCH ×3 (08:29→15:28)
[2020-05-02] MEDS ORDERED: Perflutren Lipid Microsphere 1.3 ML in 0.9 % Sodium Chloride 8.7 ML IVP PRN ×2 (09:49→10:40)
[2020-05-02 18:37] LABS: Bacteria,Urine Few per hpf (None-Few); Bilirubin,Urine Negative (Negative); Blood,Urine Small (Negative); Clarity,Urine Clear (Clear); Color,Urine Light-Yellow (Yellow); Glucose,Urine (UA) Normal (Normal); Ketones,Urine 10 mg/dL (Negative); Leukocyte Esterase,Urine Trace (Negative); Mucus,Urine Few per lpf (None-Few); Nitrite,Urine Negative (Negative); Protein,Urine Negative (Neg-Trace); Specific Gravity,Urine 1.021 (1.010-1.025); Urobilinogen,Urine Normal (Normal)
[2020-05-03 06:30] VITALS: BP 145/72
[2020-05-03] MEDS: DilTIAZem CD (24hr) 120 MG CAP.ER.24H PO SCH (09:06)
[2020-05-03] MEDS: Apixaban 5 MG TABLET PO SCH (09:06)
[2020-05-03] MEDS: Sucralfate 1 GM TABLET PO SCH ×2 (09:06→11:38)
[2020-05-03] MEDS: Aspirin Enteric Coated 81 MG Tablet PO SCH (09:06)
[2020-05-03] MEDS: Finasteride 5 MG TABLET PO SCH (09:06)
[2020-05-03] MEDS: Primidone 50 MG TABLET PO SCH (09:06)
[2020-05-03] MEDS ORDERED: lisinopriL 10 MG TABLET PO SCH (10:45)
== END 2020-05-03 13:33 | disposition home health service (06) ==
LOC: EMEROOARM 13:52 → 3BNU 13:52 → SUATTDRO 16:54 → 3BNU 17:39
PROVIDERS: ADMIT Student in an Organized Health Care Education/Training Program; ATTEND Internal Medicine

== ENCOUNTER 2020-11-12 15:24 | Observation (INO) ==
[2020-11-12 16:03] LABS: Basophils # 0.1 K/mcL (0.0-0.2); Basophils % 0.7 %; Eosinophils # 0.1 K/mcL (0.0-0.6); Eosinophils % 0.8 %; Hematocrit 40.9 % (37.5-50.1); Hemoglobin 13.1 g/dL (12.9-16.9); Immature Granulocytes % 0.3 % (0-4); Lymphocytes # 2.3 K/mcL (0.6-4.6); Lymphocytes % 29.4 %; Mean Corpuscular Hemoglobin 27.6 pg (28.0-33.3); Mean Corpuscular Volume 86.3 fL (83.0-100.0); Mean Platelet Volume 9.7 fL (9.4-12.4); Monocytes # 0.7 K/mcL (0.0-1.3); Monocytes % 9.6 %; Neutrophils # 4.6 K/mcL (1.6-8.9); Platelet Count 209 K/mcL (140-400); Red Blood Count 4.74 M/mcL (4.19-5.50); Red Cell Distribution Width 14.1 % (11.5-14.5); Segmented Neutrophils % 59.2 %; White Blood Count 7.7 K/mcL (4.3-11.1)
[2020-11-12] MEDS ORDERED: *HR* FentaNYL (PF) 100 MCG/2 ML VIAL IVP ONE (16:16)
[2020-11-12 16:17] LABS: BUN/Creatinine Ratio 20 (6-26); Blood Urea Nitrogen 17 mg/dL (8-23); Calcium 9.2 mg/dL (8.6-10.3); Carbon Dioxide 29 mEq/L (23-29); Chloride 103 mEq/L (98-107); Glucose 116 mg/dL (70-105); Osmolality,Calculated 285 (280-300); Potassium 4.1 mEq/L (3.5-5.1); Sodium 136 mEq/L (136-145); eGFR For African Americans > 60 (> 60); eGFR For Non-African Americans > 60 (> 60)
[2020-11-12] MEDS ORDERED: Isovue-370 500 ML BOTTLE IVP ONE (16:18)
[2020-11-12 16:20] LABS: Alanine Aminotransferase 17 Units/L (7-52); Albumin 4.1 g/dL (3.5-5.7); Albumin/Globulin Ratio 1.4 (1.1-2.2); Alkaline Phosphatase 101 Units/L (34-104); Aspartate Amino Transferase 17 Units/L (13-39); Bilirubin,Direct 0.1 mg/dL (0.0-0.2); Bilirubin,Indirect 0.4 mg/dL (0.0-1.0); Bilirubin,Total 0.5 mg/dL (0.3-1.0); Globulin 2.9 g/dL (2.4-3.5); Lipase 31 Units/L (11-82); Troponin I < 0.03 ng/mL (< 0.04)
[2020-11-12] MEDS ORDERED: Naloxone 0.4 MG/ML INJ IVP PRN (17:57)
[2020-11-12] MEDS: Sucralfate 1 GM TABLET PO SCH (23:26)
[2020-11-12] MEDS: Primidone 50 MG TABLET PO SCH (23:26)
[2020-11-12] MEDS: Apixaban 5 MG TABLET PO SCH (23:30)
[2020-11-13] MEDS ORDERED: Acetaminophen IV 1,000 MG/100 ML BAG IVPB ONE (01:33)
[2020-11-13 05:59] LABS: Basophils % 0.6 %; Eosinophils # 0.1 K/mcL (0.0-0.6); Eosinophils % 1.8 %; Hematocrit 38.1 % (37.5-50.1); Hemoglobin 12.8 g/dL (12.9-16.9); Immature Granulocytes % 0.3 % (0-4); Lymphocytes # 2.3 K/mcL (0.6-4.6); Lymphocytes % 34.2 %; Mean Corpuscular HGB Conc 33.6 g/dL (31.6-35.5); Mean Corpuscular Hemoglobin 28.4 pg (28.0-33.3); Mean Corpuscular Volume 84.7 fL (83.0-100.0); Monocytes # 0.9 K/mcL (0.0-1.3); Monocytes % 13.5 %; Neutrophils # 3.3 K/mcL (1.6-8.9); Platelet Count 205 K/mcL (140-400); Segmented Neutrophils % 49.6 %; White Blood Count 6.6 K/mcL (4.3-11.1)
[2020-11-13 06:16] LABS: BUN/Creatinine Ratio 22 (6-26); Blood Urea Nitrogen 17 mg/dL (8-23); Calcium 8.9 mg/dL (8.6-10.3); Carbon Dioxide 26 mEq/L (23-29); Chloride 105 mEq/L (98-107); Glucose 78 mg/dL (70-105); Osmolality,Calculated 282 (280-300); Potassium 4.1 mEq/L (3.5-5.1); Sodium 136 mEq/L (136-145); eGFR For African Americans > 60 (> 60); eGFR For Non-African Americans > 60 (> 60)
[2020-11-13] MEDS: Pantoprazole 40 MG VIAL IVP SCH ×2 (06:44→16:47)
[2020-11-13] MEDS: DilTIAZem SR (12hr) 60 MG CAP.ER.12H PO SCH (07:56)
[2020-11-13] MEDS: Sucralfate 1 GM TABLET PO SCH ×2 (07:56→21:29)
[2020-11-13] MEDS: Aspirin Enteric Coated 81 MG Tablet PO SCH (07:56)
[2020-11-13] MEDS: Apixaban 5 MG TABLET PO SCH ×2 (07:56→21:29)
[2020-11-13] MEDS: Finasteride 5 MG TABLET PO SCH (07:56)
[2020-11-13] MEDS ORDERED: Sucralfate 1 GM TABLET PO SCH (09:00)
[2020-11-13] MEDS ORDERED: GI Cocktail 40 ML EACH PO ONE (16:32)
[2020-11-13] MEDS: Acetaminophen 325 MG TABLET PO PRN ×2 (17:12→21:32)
[2020-11-13] MEDS: Primidone 50 MG TABLET PO SCH (21:29)
[2020-11-14] MEDS: Pantoprazole 40 MG VIAL IVP SCH (06:15)
[2020-11-14] MEDS ORDERED: Regadenoson 0.4 MG/5 ML SYRINGE IVP ONE (06:18)
[2020-11-14 06:51] LABS: Hematocrit 38.5 % (37.5-50.1); Hemoglobin 12.6 g/dL (12.9-16.9); Mean Corpuscular HGB Conc 32.7 g/dL (31.6-35.5); Mean Corpuscular Hemoglobin 27.6 pg (28.0-33.3); Mean Corpuscular Volume 84.4 fL (83.0-100.0); Mean Platelet Volume 10.2 fL (9.4-12.4); Platelet Count 231 K/mcL (140-400); Red Blood Count 4.56 M/mcL (4.19-5.50); White Blood Count 7.5 K/mcL (4.3-11.1)
[2020-11-14 07:16] LABS: BUN/Creatinine Ratio 22 (6-26); Blood Urea Nitrogen 18 mg/dL (8-23); Calcium 8.9 mg/dL (8.6-10.3); Carbon Dioxide 26 mEq/L (23-29); Chloride 104 mEq/L (98-107); Glucose 89 mg/dL (70-105); Osmolality,Calculated 283 (280-300); Potassium 4.1 mEq/L (3.5-5.1); Sodium 136 mEq/L (136-145); eGFR For African Americans > 60 (> 60); eGFR For Non-African Americans > 60 (> 60)
[2020-11-14] MEDS: Aspirin Enteric Coated 81 MG Tablet PO SCH (08:48)
[2020-11-14] MEDS: DilTIAZem SR (12hr) 60 MG CAP.ER.12H PO SCH (08:48)
[2020-11-14] MEDS: Finasteride 5 MG TABLET PO SCH (08:48)
[2020-11-14] MEDS: Apixaban 5 MG TABLET PO SCH (08:48)
[2020-11-14] MEDS: Sucralfate 1 GM TABLET PO SCH (08:48)
[2020-11-14 09:58] VITALS: BP 145/64
== END 2020-11-14 14:46 | disposition home or self-care (01) ==
LOC: 3BNU 15:24 → EMEROOARM 15:24 → SUATTDRO 18:34 → 3BNU 11-13 04:34
PROVIDERS: ADMIT Internal Medicine; ATTEND Internal Medicine